=== PATIENT | male | born 1950 | race Caucasian/White ===

== ENCOUNTER 2017-04-25 15:37 | Inpatient (IN) | payer OTHER ==
--- NOTE | 2017-04-25 16:35 | PDOC ---
Attending Attestation - Resident Resident Name: Jonathan Rodriguez - HPI HPI: 04/25/17 18:47 Pt presents to the ED complaining of a three week history of gradually worsening shortness of breath and ANTONY that became acutely worse today. Denies fever or productive cough. Also complaining of increased pain and swelling to both legs. History of COPD without intubations in the past. No relief with his inhaler at home. - Physicial Exam PE: 04/25/17 18:48 Agree with resident exam. + diffuse wheezing with poor air entry bilaterally. Patient is able to speak in complete sentences without respiratory [id number]. + 3 pitting edema to the knee bilaterally. - Medical Decision Making 04/25/17 18:53 Pt presents to the ED complaining of worsening shortness of breath and ANTONY. Differential includes COPD exacerbation, PNA, CHF exacerbation, less likely PE. WIll check labs and CXr, treat with nebs and steroids and reassess. Leg swelling may be secondary to CHF, less likely DVT or cellulitis. GIven his skin breakdown, will treat for cellulitis. Will check bilateral duplexes. Will likely admit to medicine.
--- NOTE | 2017-04-25 16:35 | PDOC ---
History of Present Illness - General Chief Complaint: Respiratory Distress Stated Complaint: SHORTNESS OF BREATH Time Seen by Provider: 04/25/17 16:34 - History of Present Illness Initial Comments: 04/25/17 16:49 66 yo M with h/o HTN, HLD, CHF, CVA ( w/absent residual deficits) NIDDM, MARLINE ( not on CPAP ) COPD, CAD, PAD who presents with SOB. Pt. reports increased SOB, Krueger, and fatigue within past 2 weeks- 3 weeks. Denies home O2 requirement, and reports increased duoneb use from 1-2/day to 4 times per day. On steroid taper from 20 mg, now on 10 mg PO QD. lasix 20 mg PO QD. Endorses severe SOB, and wheezing yesterday evening. Also endorses worsening BL LE edema, redness, and swelling x 1 week. Reports transient episode of sharp left sided chest pain earlier today (now resolved), with absent radiation at rest. Denies cough, pleuritic chest pain, hemoptysis, palpitations, lightheadedness. Denies h/o DVT/ PE, and endorses prolonged periods of immobility within past week. Denies h/o malignany or recent trauma. Recent vascular surgery x [address] Tyson Fu. Tobacco cessation x 2 months following 1-2 ppd 40+ year tobacco use. h/ o CAD, but denies [place], stent placement, CABG. Normal exercise stress test 1 year ago. 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 Denies N/V, F/C, abdominal pain, diarrhea, constipation, urinary complaints , weakness, sensory changes. Past History - Past Medical History Allergies/Adverse Reactions: Allergies Allergy/AdvReac Type Severity Reaction Status Date / Time No Known Allergies Allergy Unverified 04/25/17 15:38 Home Medications: Ambulatory Orders Albuterol Sulfate Inhaler - [Ventolin HFA Inhaler -] 1 - 2 puff PO PRN 04/25/17 Amlodipine Besylate 5 mg PO DAILY 04/25/17 Aspirin [Adult Aspirin Regimen] 81 mg PO DAILY 04/25/17 Atorvastatin Ca [Lipitor] 40 mg PO HS 04/25/17 Carvedilol 12.5 mg PO DAILY 04/25/17 Clopidogrel Bisulfate [Plavix] 75 mg PO DAILY 04/25/17 Ergocalciferol (Vitamin D2) [Vitamin D2] 50,000 unit PO DAILY 04/25/17 Ezetimibe [Zetia] 10 mg PO DAILY 04/25/17 Furosemide [Lasix] 20 mg PO DAILY 04/25/17 Gabapentin 600 mg PO TID 04/25/17 Linagliptin [Tradjenta] 5 mg PO DAILY 04/25/17 Lisinopril 20 mg PO DAILY 04/25/17 Cardiac Disorders: Yes (ENLARGED HEART) COPD: Yes Diabetes: Yes HTN: Yes Hypercholesterolemia: Yes Other medical history: BILATERAL LOWER EXTREMITY VEIN PROBLEM - Suicide/Smoking/Psychosocial Hx Smoking History: Former smoker Have you smoked in the past 12 months: Yes If you are a former smoker, when did you quit?: 03/2017 Information on smoking cessation initiated: No Hx Alcohol Use: No Drug/Substance Use Hx: No Substance Use Type: None Review of Systems - Review of Systems Comments:: 04/25/17 17:03 GENERAL/CONSTITUTIONAL: + Fatigue. No fever or chills. No weakness. HEAD, EYES, EARS, NOSE AND THROAT: No change in vision. No ear pain or discharge. No sore throat. CARDIOVASCULAR: No chest pain or shortness of breath RESPIRATORY: + SOB, and wheezing. No cough,or hemoptysis. GASTROINTESTINAL: No nausea, vomiting, diarrhea or constipation. GENITOURINARY: No dysuria, frequency, or change in urination. MUSCULOSKELETAL: No joint, neck or back pain. SKIN:+ BL LE Swelling and pain. No rash NEUROLOGIC: No headache, vertigo, loss of consciousness, or change in strength/ sensation. ENDOCRINE: No increased thirst. No abnormal weight change HEMATOLOGIC/LYMPHATIC: No anemia, easy bleeding, or history of blood clots. ALLERGIC/IMMUNOLOGIC: No hives or skin allergy. *Physical Exam - Vital Signs Last Vital Signs Temp Pulse Resp BP Pulse Ox 97.4 F L 78 18 148/78 95 04/25/17 15:38 04/25/17 15:38 04/25/17 15:38 04/25/17 15:38 04/25/17 15:38 - Physical Exam Comments: 04/25/17 17:05 GENERAL: Awake, alert, and fully oriented, in no acute distress HEAD: No signs of trauma, normocephalic, atraumatic EYES: PERRLA, EOMI, sclera anicteric, conjunctiva clear ENT: Hearing grossly normal, nares patent, oropharynx clear without exudates. Moist mucosa NECK: Normal ROM, supple, no lymphadenopathy, JVD, or masses LUNGS: Coarse lung sounds at bases. Mild exp rhonci throuhgout. Diminished right sided LL breath sounds. HEART: Regular rate and rhythm, normal S1 and S2, no murmurs, rubs or gallops, UE peripheral pulses normal and equal bilaterally. Difficult to palpate BL LE pulses. EXTREMITIES : BL LE 3 + pitting edema with widespread venous stasis dermatitis and BL lateral areas of non circumscribed, non fluctuant 8 x 8 cm erythema, BTK . No clubbing or cyanosis. Absent lymphadenitis or streaking. SKIN: Warm, Dry, normal turgor, no rashes or lesions noted ED Treatment Course - LABORATORY CBC & Chemistry Diagram: 04/28/17 08:25 04/28/17 08:25 Medical Decision Making - Medical Decision Making 04/25/17 17:09 66 yo M with h/o HTN, HLD, CHF, CVA ( w/absent residual deficits) NIDDM, MARLINE ( not on CPAP ) COPD, CAD, PAD who presents with SOB. Pt. reports increased SOB, Krugeer, and fatigue within past 2 weeks - 3 weeks. Worsening BL LE edema, redness, and swelling x 1 week. Severe SOB, and wheezing yesterday evening. Transient episode of sharp left sided chest pain earlier today (now resolved), with absent radiation at rest. Denies Tobacco cessation x 2 months following 1-2 ppd 40+ year tobacco use. Denies N/V, F/C, cough, pleuritic chest pain, hemoptysis, palpitations, lightheadedness.abdominal pain, diarrhea, constipation , urinary complaints ,weakness, sensory changes. Physical exam noteble for coarse lung sounds at bases. Mild exp rhonci throuhgout. Diminished right sided LL breath sounds. BL LE 3 + pitting edema with widespread venous stasis dermatitis and BL lateral areas of non circumscribed, non fluctuant 8 x 8 cm erythema, BTK . No clubbing or cyanosis. Absent lymphadenitis or streaking. SOB , and leg swelling most likely 2/2 acute on chronic CHF vs. COPD. Will also consider BL LE DVT based on physical exam. R/o PNA, ACS/WI. D/t multiple risk factors, recent surgery, and periods of prolonged immobilization/venous stasis will consider DVT. ED Course: CBC, CMP, BNP, Cardiac Pr EKG, CXR, BL LE DUPLEX VASC UA Keflex 750 mg, Duonebs,Prednisone 60 mg 04/25/17 18:03 CBC: Unremarkable 04/25/17 18:04 Trop: Neg UA: Unremarkable 04/25/17 18:41 Duplex U/S: no evidence of DVT 04/25/17 19:25 Pt. pending admission to [facility] who admits to [facility] who admits to hospitalist after 5 PM. 04/25/17 19:25 BNP: 2578.98 *DC/Admit/Observation/Transfer Diagnosis at time of Disposition: COPD exacerbation - Discharge Dispostion Condition at time of disposition: Fair Admit: Yes - Referrals - Patient Instructions - Post Discharge Activity
[2017-04-25] MEDS ORDERED: predniSONE 20 MG TABLET (UD) PO ONE (16:51)
[2017-04-25] MEDS ORDERED: predniSONE 20 MG TABLET (UD) ONE (17:01)
[2017-04-25] MEDS ORDERED: ALBUTEROL SO4 2.5/IPRATROPIUM 0.5 INH SOL 3 ML VIAL.NEB. NEB ONE (17:01)
[2017-04-25 17:14] LABS: BASO % 1.9 % (0-2.0); EOS % 2.8 % (0-4.5); HEMATOCRIT 44.5 % (35.4-49); HEMOGLOBIN 14.5 GM/dl (11.7-16.9); MCH 29.1 pg (25.7-33.7); MCHC 32.5 g/dl (32.0-35.9); MEAN CELL VOLUME 89.5 fl (80-96); MEAN PLT VOLUME 10.1 fl (7.5-11.1); NEUT % 78.3 % (42.8-82.8); PLATELET COUNT 111 K/MM3 (134-434); RBC 4.98 M/mm3 (4.00-5.60); RDW 15.7 % (11.9-15.9); WHITE BLOOD COUNT 10.3 K/mm3 (4.0-10.8)
[2017-04-25] MEDS: ALBUTEROL SO4 2.5/IPRATROPIUM 0.5 INH SOL 3 ML VIAL.NEB. NEB SCH ×4 (17:15→18:23)
[2017-04-25 17:25] LABS: INR 1.1 (0.82-1.09); PROTHROMBIN TIME (PATIENT) 12.3 SEC (10.2-13.0)
[2017-04-25 17:26] LABS: PH,URINE 5.5 (4.5-8); URINE APPEARANCE Clear; URINE BILIRUBIN Negative (NEGATIVE); URINE BLOOD 1+ (NEGATIVE); URINE COLOR YELLOW; URINE GLUCOSE (UA) Negative (NEGATIVE); URINE KETONE Negative (NEGATIVE); URINE LEUK ESTERASE Negative (NEGATIVE); URINE NITRITE Negative (NEGATIVE); URINE PROTEIN 2+ (NEGATIVE); URINE UROBILINOGEN 0.2 (0.2-1.0)
[2017-04-25 17:29] LABS: ALBUMIN 3.3 g/dl (3.5-5.0); ALK PHOS 123 U/L (32-92); ANION GAP 8 (8-16); BILIRUBIN,TOTAL 0.7 mg/dl (0.2-1.0); BLOOD UREA NITROGEN 20 mg/dl (7-18); CALCIUM 8.6 mg/dl (8.4-10.2); CHLORIDE 101 mmol/L (98-107); CO2 27 mmol/L (22-28); CREATININE 1.3 mg/dl (0.6-1.3); GLUCOSE,RANDOM 146 mg/dl (74-106); POTASSIUM 3.6 mmol/L (3.5-5.1); SGOT/AST 28 U/L (10-42); SGPT/ALT 32 U/L (10-40); SODIUM 136 mmol/L (136-145); TOT PROT 6.4 g/dl (6.4-8.3)
[2017-04-25 17:47] LABS: URINE WBC 0-2 (0-2)
[2017-04-25] MEDS ORDERED: CEPHALEXIN MONOHYDRATE 250 MG CAPSULE (FP) PO ONE (17:55)
[2017-04-25] MEDS ORDERED: CEPHALEXIN MONOHYDRATE 250 MG CAPSULE (FP) ONE (18:23)
[2017-04-25] MEDS ORDERED: FUROSEMIDE 40 MG/4 ML INJECTABLE VIAL IVPUSH ONE (18:41)
[2017-04-25] MEDS ORDERED: FUROSEMIDE 40 MG/4 ML INJECTABLE VIAL ONE (18:49)
--- NOTE | 2017-04-25 20:25 | PDOC ---
*Physical Exam - Vital Signs Last Vital Signs Temp Pulse Resp BP Pulse Ox 97.8 F 62 18 157/78 93 L 04/25/17 20:17 04/25/17 20:17 04/25/17 20:17 04/25/17 20:17 04/25/17 20:17 ED Treatment Course - LABORATORY CBC & Chemistry Diagram: 04/25/17 16:40 04/25/17 16:40 - ADDITIONAL ORDERS Additional order review: Laboratory Results 04/25/17 04/25/17 04/25/17 17:00 16:59 16:59 PT with INR INR Sodium Potassium Chloride Carbon Dioxide Anion Gap BUN Creatinine Creat Clearance w eGFR Random Glucose Calcium Total Bilirubin AST ALT Alkaline Phosphatase Creatine Kinase 33 L Troponin I < 0.03 B-Natriuretic Peptide Total Protein Albumin Urine Color Yellow Urine Appearance Clear Urine pH 5.5 Ur Specific [place] 1.015 Urine Protein 2+ H Urine Glucose (UA) Negative Urine Ketones Negative Urine Blood 1+ H Urine Nitrite Negative Urine Bilirubin Negative Urine Urobilinogen 0.2 Ur Leukocyte Esterase Negative Urine RBC 2-5 Urine WBC 0-2 04/25/17 04/25/17 04/25/17 16:59 16:40 16:40 PT with INR 12.3 INR 1.10 Sodium 136 Potassium 3.6 Chloride 101 Carbon Dioxide 27 Anion Gap 8 BUN 20 H Creatinine 1.3 Creat Clearance w eGFR 55.06 Random Glucose 146 H Calcium 8.6 Total Bilirubin 0.7 AST 28 ALT 32 Alkaline Phosphatase 123 H Creatine Kinase Troponin I B-Natriuretic Peptide 2578.98 H Total Protein 6.4 Albumin 3.3 L Urine Color Urine Appearance Urine pH Ur Specific [place] Urine Protein Urine Glucose (UA) Urine Ketones Urine Blood Urine Nitrite Urine Bilirubin Urine Urobilinogen Ur Leukocyte Esterase Urine RBC Urine WBC 04/25/17 16:40 RBC 4.98 MCV 89.5 MCHC 32.5 RDW 15.7 MPV 10.1 Neutrophils % 78.3 Lymphocytes % 12.0 Monocytes % 5.0 Eosinophils % 2.8 Basophils % 1.9 - Medications Given in the ED: ED Medications Discontinued Medications Generic Name Dose Route Start Last Admin Trade Name Freq PRN Reason Stop Dose Admin Albuterol/Ipratropium 1 amp 04/25/17 17:00 04/25/17 18:23 Duoneb - NEB 04/25/17 17:46 1 amp Q15M ZAKIYA Administration Cephalexin HCl 750 mg 04/25/17 17:55 04/25/17 18:26 Keflex - PO 04/25/17 17:56 750 mg ONCE ONE Administration Furosemide 40 mg 04/25/17 18:41 04/25/17 18:54 Lasix Injection - IVPUSH 04/25/17 18:42 40 mg ONCE ONE Administration Prednisone 60 mg 04/25/17 16:51 04/25/17 17:15 Deltasone - PO 04/25/17 16:52 60 mg ONCE ONE Administration Progress Note - Progress Note Progress Note: This patient was seen and evaluated treated and disposition made prior to my coming on duty at 7 PM however patient had not had admitting orders put in yet so I reevaluated the patient and she continued to have diffuse wheezing throughout all lung luna. I discussed admission with the hospitalist who agreed to admit the patient to an observation bed for acute exacerbation of COPD. However patient is recently postop so a PE is part of the differential diagnosis however wheezing is not a manifestation of a PE. Patient's oxygenation is 95-97% patient has not tachycardic or tachypnea. I do not feel that a CT angiogram of the chest is warranted at this time however if patient does not improve with COPD treatment that a CT Angiogram of the chest should definitely be considered post admission. Patient was accepted for admission by the hospitalist service. . Signout given to the admitting hospitalist, who accepts the patient. Discussed plan with the patient family at bedside, Patient and family aware of the plan and agree. Patient is clinically unchanged and stable. *DC/Admit/Observation/Transfer Diagnosis at time of Disposition: COPD exacerbation - Discharge Dispostion Condition at time of disposition: Fair Admit: Yes Decision to Admit order Date/Time: Decision to Admit Order Category Date Time Status Decision to Admit to Hospital Routine Admission 04/25/17 20:03 Active - Referrals - Patient Instructions - Post Discharge Activity
--- NOTE | 2017-04-25 21:22 | HP ---
Admitting History and Physical - Primary Care Physician PCP: Doctor not on Staff ([facility]) - Admission Chief Complaint: SOB, Leg swelling History of Present Illness: This is a 66 y/o man who presents to the ED with increased SOB and fatigue x 2 weeks. Patient reports ANTONY while taking a few steps at home. Patient reports smoking cessation last month. Patient reports increased tightness and swelling to both legs. Patient denies fever, chills, cough, dizziness, CP, palpitations, AP, N/V/D, constipation, dysuria. History Source: Patient Limitations to Obtaining History: No Limitations - Past Medical History [employer]OCK[employer]: Yes: CVA (neg deficits) Cardiovascular: Yes: CHF, HTN, Hyperlipdemia, Other (PAD) Pulmonary: Yes: COPD, Sleep Apnea Endocrine: Yes: Diabetes Mellitus - Past Surgical History Additional Past Surgical History: cardiac cath - Smoking History Smoking history: Former smoker Have you smoked in the past 12 months: Yes Aproximately how many cigarettes per day: 40 (2PPD x 30 yrs) If you are a former smoker, when did you quit?: 03/2017 - Alcohol/Substance Use Hx Alcohol Use: No History of Substance Use: reports: None - Social History Usual Living Arrangement: Yes: With Spouse ADL: Family Assistance History of Recent Travel: No Home Medications - Allergies Allergies/Adverse Reactions: Allergies Allergy/AdvReac Type Severity Reaction Status Date / Time No Known Allergies Allergy Unverified 04/25/17 15:38 - Home Medications Home Medications: Ambulatory Orders Albuterol Sulfate Inhaler - [Ventolin HFA Inhaler -] 1 - 2 puff PO PRN 04/25/17 Amlodipine Besylate 5 mg PO DAILY 04/25/17 Aspirin [Adult Aspirin Regimen] 81 mg PO DAILY 04/25/17 Atorvastatin Ca [Lipitor] 40 mg PO HS 04/25/17 Carvedilol 12.5 mg PO DAILY 04/25/17 Clopidogrel Bisulfate [Plavix] 75 mg PO DAILY 04/25/17 Ergocalciferol (Vitamin D2) [Vitamin D2] 50,000 unit PO DAILY 04/25/17 Ezetimibe [Zetia] 10 mg PO DAILY 04/25/17 Furosemide [Lasix] 20 mg PO DAILY 04/25/17 Gabapentin 600 mg PO TID 04/25/17 Linagliptin [Tradjenta] 5 mg PO DAILY 04/25/17 Lisinopril 20 mg PO DAILY 04/25/17 Family Disease History - Family Disease History Family History: Unable to Obtain Review of Systems - Review of Systems Constitutional: reports: Malaise, Weakness Eyes: reports: No Symptoms HENT: reports: No Symptoms Neck: reports: No Symptoms Cardiovascular: reports: Edema, Shortness of Breath Respiratory: reports: SOB, SOB on Exertion Gastrointestinal: reports: No Symptoms Genitourinary: reports: No Symptoms Breasts: reports: No Symptoms Reported Musculoskeletal: reports: Joint Swelling Integumentary: reports: Change in Color, Erythema Neurological: reports: No Symptoms Endocrine: reports: No Symptoms Hematology/Lymphatic: reports: No Symptoms Psychiatric: reports: No Symptoms Physical Examination Vital Signs: Vital Signs Temperature 97.8 F 04/25/17 20:17 Pulse Rate 62 04/25/17 20:17 Respiratory Rate 18 04/25/17 20:17 Blood Pressure 157/78 04/25/17 20:17 O2 Sat by Pulse Oximetry (%) 93 L 04/25/17 20:17 Constitutional: Yes: Mild Distress, Obese Eyes: Yes: WNL, Conjunctiva Clear, EOM Intact, PERRL HENT: Yes: WNL, Atraumatic, Normocephalic Neck: Yes: WNL, Supple, Trachea Midline Cardiovascular: Yes: WNL, Regular Rate and Rhythm, S1, S2 Respiratory: Yes: Diminished (bases), On Nasal O2, Rales, Rhonchi, SOB, SOB on Exertion Gastrointestinal: Yes: WNL, Normal Bowel Sounds, Soft, Abdomen, Obese ...Rectal Exam: Yes: Deferred Renal/: Yes: WNL Breast(s): Yes: WNL Musculoskeletal: Yes: WNL Extremities: Yes: Erythema Edema: Yes Edema: LLE: 3+, RLE: 3+ Peripheral Pulses WNL: Yes Peripheral Pulses: Left Doralis Pedis: 1+, Right Dorsalis Pedis: 1+ Integumentary: Yes: Erythema, Venous Stasis Changes Neurological: Yes: WNL, Alert, Oriented, Cran Nerves II-XII Intact ...Motor Strength: WNL Psychiatric: Yes: WNL, Alert, Oriented Labs: CBC, BMP 04/25/17 16:40 04/25/17 16:40 Laboratory Results - last 24 hr 04/25/17 04/25/17 04/25/17 16:40 16:40 16:40 WBC 10.3 RBC 4.98 Hgb 14.5 Hct 44.5 MCV 89.5 MCH 29.1 MCHC 32.5 RDW 15.7 Plt Count 111 L MPV 10.1 Neutrophils % 78.3 Lymphocytes % 12.0 Monocytes % 5.0 Eosinophils % 2.8 Basophils % 1.9 PT with INR 12.3 INR 1.10 Sodium 136 Potassium 3.6 Chloride 101 Carbon Dioxide 27 Anion Gap 8 BUN 20 H Creatinine 1.3 Creat Clearance w eGFR 55.06 Random Glucose 146 H Calcium 8.6 Total Bilirubin 0.7 AST 28 ALT 32 Alkaline Phosphatase 123 H Creatine Kinase Troponin I B-Natriuretic Peptide Total Protein 6.4 Albumin 3.3 L Urine Color Urine Appearance Urine pH Ur Specific [place] Urine Protein Urine Glucose (UA) Urine Ketones Urine Blood Urine Nitrite Urine Bilirubin Urine Urobilinogen Ur Leukocyte Esterase Urine RBC Urine WBC 04/25/17 04/25/17 04/25/17 16:59 16:59 16:59 WBC RBC Hgb Hct MCV MCH MCHC RDW Plt Count MPV Neutrophils % Lymphocytes % Monocytes % Eosinophils % Basophils % PT with INR INR Sodium Potassium Chloride Carbon Dioxide Anion Gap BUN Creatinine Creat Clearance w eGFR Random Glucose Calcium Total Bilirubin AST ALT Alkaline Phosphatase Creatine Kinase 33 L Troponin I < 0.03 B-Natriuretic Peptide 2578.98 H Total Protein Albumin Urine Color Urine Appearance Urine pH Ur Specific [place] Urine Protein Urine Glucose (UA) Urine Ketones Urine Blood Urine Nitrite Urine Bilirubin Urine Urobilinogen Ur Leukocyte Esterase Urine RBC Urine WBC 04/25/17 04/26/17 17:00 00:01 WBC RBC Hgb Hct MCV MCH MCHC RDW Plt Count MPV Neutrophils % Lymphocytes % Monocytes % Eosinophils % Basophils % PT with INR INR Sodium Potassium Chloride Carbon Dioxide Anion Gap BUN Creatinine Creat Clearance w eGFR Random Glucose Calcium Total Bilirubin AST ALT Alkaline Phosphatase Creatine Kinase Troponin I 0.03 B-Natriuretic Peptide Total Protein Albumin Urine Color Yellow Urine Appearance Clear Urine pH 5.5 Ur Specific [place] 1.015 Urine Protein 2+ H Urine Glucose (UA) Negative Urine Ketones Negative Urine Blood 1+ H Urine Nitrite Negative Urine Bilirubin Negative Urine Urobilinogen 0.2 Ur Leukocyte Esterase Negative Urine RBC 2-5 Urine WBC 0-2 Intake & Output 04/23/17 04/24/17 04/25/17 04/26/17 23:59 23:59 23:59 23:59 Intake Total 100 Output Total 200 Balance 100 -200 Weight 129.756 kg Current Medications Generic Name Dose Route Start Last Admin Trade Name Shaniqua PRN Reason Stop Dose Admin Amlodipine Besylate 5 mg 04/26/17 10:00 Norvasc - PO DAILY [facility] Aspirin 81 mg 04/26/17 10:00 Ecotrin - PO DAILY ZAKIYA Atorvastatin Calcium 40 mg 04/25/17 22:00 04/25/17 23:35 Lipitor - PO 40 mg HS ZAKIYA Administration Carvedilol 12.5 mg 04/26/17 10:00 Coreg - PO DAILY ZAKIYA Clopidogrel Bisulfate 75 mg 04/26/17 10:00 Plavix - PO DAILY ZAKIYA Ezetimibe 10 mg 04/26/17 10:00 Zetia - PO DAILY ZAKIYA Furosemide 40 mg 04/26/17 10:00 Lasix Injection - IVPUSH DAILY [facility] Gabapentin 600 mg 04/25/17 22:00 04/25/17 23:35 Neurontin - PO 600 mg TID ZAKIYA Administration Lisinopril 20 mg 04/26/17 10:00 Prinivil PO DAILY ZAKIYA Imaging - Results Chest X-ray: Image Reviewed Ultrasound: Report Reviewed, Image Reviewed EKG: Report Reviewed Problem List - Problems (1) CHF exacerbation Code(s): I50.9 - HEART FAILURE, UNSPECIFIED (2) COPD exacerbation Code(s): J44.1 - CHRONIC OBSTRUCTIVE PULMONARY DISEASE W (ACUTE) EXACERBATION (3) CAD (coronary artery disease) Code(s): I25.10 - ATHSCL HEART DISEASE OF [place] CORONARY ARTERY W/O ANG PCTRS (4) HTN (hypertension) Code(s): I10 - ESSENTIAL (PRIMARY) HYPERTENSION (5) HLD (hyperlipidemia) Code(s): E78.5 - HYPERLIPIDEMIA, UNSPECIFIED (6) Diabetes mellitus Code(s): E11.9 - TYPE 2 DIABETES MELLITUS WITHOUT COMPLICATIONS (7) PAD (peripheral artery disease) Code(s): I73.9 - PERIPHERAL VASCULAR DISEASE, UNSPECIFIED (8) MARLINE (obstructive sleep apnea) Code(s): G47.33 - OBSTRUCTIVE SLEEP APNEA (ADULT) (PEDIATRIC) (9) CVA (cerebral vascular accident) Code(s): I63.9 - CEREBRAL INFARCTION, UNSPECIFIED (10) DVT prophylaxis Code(s): AFS7410 - Assessment/Plan This is a 66 y/o man with a PMHx of: HTN, HLD, NIDDM, CHF, PAD, CVA (no deficits ), COPD (no O2), MARLINE. Placed on Tele Observation for CHF Exacerbation. Plan: 1. CHF Exacerbation - Cardiac monitoring - Chest Xray- reviewed - BNP 2578 - Lasix given in ED will continue - Venous Dopper- neg DVTs - Serial Enzymes neg x1, will continue to trend - Appreciate Cardiology consult - Echo - Strict INOs - O2 - Repeat CBC, BMP in am 2. COPD - Duonebs - Solumederol w/taper - Appreciate Pulm consult - O2 3. Hypertension - Monitor BP - Continue Lisinopril, Zetia, Norvasc - Monitor renal function 4. Hyperlipidemia - Continue Lipitor - Monitor LFTs 5. PAD - FU with vascular outpatient 6. NIDDM - BGMs - ISS - Continue Tradjenta - HgbA1C in am 7. CVA - no deficits - Continue to monitor and treat with interventions accordingly - Fall Precautions 8. MARLINE - no CPAP home use secondary to financial strain - Case Management consult 9. FEN - Fluid Restrictions 1L - Replete lytes prn - Low Na, Diabetic Diet 10. DVT ppx - OOB - Heparin SQ closely monitor platelets Code Status: Full Code Dispo: Tele Observation Visit type - Emergency Visit Emergency Visit: Yes ED Registration Date: 04/25/17 Care time: The patient presented to the Emergency Department on the above date and was hospitalized for further evaluation of their emergent condition. - New Patient This patient is new to me today: Yes Date on this admission: 04/25/17 - Critical Care Critical Care patient: No Hospitalist Screening - Colonoscopy Questionnaire Colonoscopy Questionnaire: Colonoscopy Questionnaire - Patient: 50 - 75 years old and never had a screening colonoscopy: No History of colon or rectal polyps, or CA: No History of IBD, Crohn's disease or UC: No History of abdominal radiation therapy as a child: No - Relative: 1 with colon or rectal CA, or polyps at age 60 or younger: No Colon or rectal CA diagnosed at age 45 or younger: No Multiple relatives with colon or rectal CA: No - Outcome: Screening Result: Negative Screen
[2017-04-25] MEDS: GABAPENTIN 300 MG CAPSULE (FP) PO SCH (23:35)
[2017-04-25] MEDS: ATORVASTATIN CA 40 MG TABLET (FP) PO SCH (23:35)
[2017-04-26 00:13] VITALS: BMI 49.1
[2017-04-26] MEDS ORDERED: ALBUTEROL SO4 2.5/IPRATROPIUM 0.5 INH SOL 3 ML VIAL.NEB. NEB PRN (06:08)
[2017-04-26] MEDS: GABAPENTIN 300 MG CAPSULE (FP) PO SCH ×3 (06:27→21:29)
[2017-04-26] MEDS: FUROSEMIDE 40 MG/4 ML INJECTABLE VIAL IVPUSH SCH ×2 (06:27→13:24)
[2017-04-26 07:42] LABS: HEMATOCRIT 45.2 % (35.4-49); HEMOGLOBIN 15.4 GM/dl (11.7-16.9); MCH 30.5 pg (25.7-33.7); MCHC 34.1 g/dl (32.0-35.9); MEAN CELL VOLUME 89.6 fl (80-96); MEAN PLT VOLUME 9.2 fl (7.5-11.1); PLATELET COUNT 105 K/MM3 (134-434); RBC 5.05 M/mm3 (4.00-5.60); RDW 15.7 % (11.9-15.9); WHITE BLOOD COUNT 9.4 K/mm3 (4.0-10.8)
[2017-04-26 07:55] LABS: ADD RBC MORPHOLOGY YES
[2017-04-26 08:08] LABS: ANION GAP 5 (8-16); BLOOD UREA NITROGEN 27 mg/dl (7-18); CALCIUM 8.4 mg/dl (8.4-10.2); CHLORIDE 100 mmol/L (98-107); CO2 29 mmol/L (22-28); CREATININE 1.6 mg/dl (0.6-1.3); PHOSPHOROUS 3.2 mg/dl (2.5-4.6); SODIUM 134 mmol/L (136-145)
[2017-04-26 08:26] LABS: GLUCOSE,RANDOM 307 mg/dl (74-106)
[2017-04-26] MEDS ORDERED: methylPREDNISolone NA SUCC 40 MG/1 ML VIAL IVPUSH SCH (09:00)
[2017-04-26] MEDS ORDERED: INSULIN (NOVOLOG) ASPART 100 UNITS/ML 10ML VIAL ONE ×2 (09:19→21:37)
[2017-04-26] MEDS: EZETIMIBE 10 MG TABLET (FP) PO SCH (09:59)
[2017-04-26] MEDS: CARVEDILOL 12.5 MG TABLET (FP) PO SCH (09:59)
[2017-04-26] MEDS: amLODIPine BESYLATE 5 MG TABLET (FP) PO SCH (09:59)
[2017-04-26] MEDS: LISINOPRIL 20 MG TABLET (FP) PO SCH (10:00)
[2017-04-26] MEDS: ASPIRIN COATED 81 MG TABLET.EC PO SCH (10:00)
[2017-04-26] MEDS ORDERED: FUROSEMIDE 40 MG/4 ML INJECTABLE VIAL IVPUSH SCH (10:00)
[2017-04-26] MEDS: CLOPIDOGREL BISULFATE 75 MG TABLET (FP) PO SCH (10:00)
[2017-04-26] MEDS: INSULIN SLIDING SCALE (NOVOLOG) 1 VIAL SQ SCH ×3 (10:00→21:38)
[2017-04-26 11:30] LABS: PLATELET ESTIMATE ADEQUATE
--- NOTE | 2017-04-26 11:46 | PN ---
Physical Exam: SUBJECTIVE: Patient seen and examined oob to chair. Patient states he is about 25 pounds above his dry weight. OBJECTIVE: Vital Signs Period Temp Pulse Resp BP Sys/Ni Pulse Ox Last 24 Hr 97.4 F-98.6 F 62-78 17-20 118-157/61-78 93-98 GENERAL: The patient is awake, alert, and fully oriented, in no acute distress. LUNGS: Distant breath sounds due to body habitus; no wheezing or crackles appreciated HEART: Regular rate and rhythm, S1, S2 ABDOMEN: Soft, nontender, obese EXTREMITIES: 4+ tense edema, cobblestoning venous stasis changes NEUROLOGICAL: Cranial nerves II through XII grossly intact. Normal speech, gait not observed. Laboratory Results - last 24 hr 04/25/1718 04/25/17 16:40 16:40 16:40 WBC 10.3 RBC 4.98 Hgb 14.5 Hct 44.5 MCV 89.5 MCH 29.1 MCHC 32.5 RDW 15.7 Plt Count 111 L MPV 10.1 Neutrophils % 78.3 Neutrophils % (Manual) Band Neutrophils % Lymphocytes % 12.0 Lymphocytes % (Manual) Monocytes % 5.0 Monocytes % (Manual) Eosinophils % 2.8 Basophils % 1.9 Platelet Estimate PT with INR 12.3 INR 1.10 Sodium 136 Potassium 3.6 Chloride 101 Carbon Dioxide 27 Anion Gap 8 BUN 20 H Creatinine 1.3 Creat Clearance w eGFR 55.06 Random Glucose 146 H Hemoglobin A1c % Calcium 8.6 Phosphorus Magnesium Total Bilirubin 0.7 AST 28 ALT 32 Alkaline Phosphatase 123 H Creatine Kinase Troponin I B-Natriuretic Peptide Total Protein 6.4 Albumin 3.3 L Urine Color Urine Appearance Urine pH Ur Specific [place] Urine Protein Urine Glucose (UA) Urine Ketones Urine Blood Urine Nitrite Urine Bilirubin Urine Urobilinogen Ur Leukocyte Esterase Urine RBC Urine WBC 04/25/17 04/25/17 04/25/17 16:59 16:59 16:59 WBC RBC Hgb Hct MCV MCH MCHC RDW Plt Count MPV Neutrophils % Neutrophils % (Manual) Band Neutrophils % Lymphocytes % Lymphocytes % (Manual) Monocytes % Monocytes % (Manual) Eosinophils % Basophils % Platelet Estimate PT with INR INR Sodium Potassium Chloride Carbon Dioxide Anion Gap BUN Creatinine Creat Clearance w eGFR Random Glucose Hemoglobin A1c % Calcium Phosphorus Magnesium Total Bilirubin AST ALT Alkaline Phosphatase Creatine Kinase 33 L Troponin I < 0.03 B-Natriuretic Peptide 2578.98 H Total Protein Albumin Urine Color Urine Appearance Urine pH Ur Specific [place] Urine Protein Urine Glucose (UA) Urine Ketones Urine Blood Urine Nitrite Urine Bilirubin Urine Urobilinogen Ur Leukocyte Esterase Urine RBC Urine WBC 04/25/17 04/26/17 04/26/17 17:00 00:01 07:15 WBC 9.4 RBC 5.05 Hgb 15.4 Hct 45.2 MCV 89.6 MCH 30.5 MCHC 34.1 RDW 15.7 Plt Count 105 L MPV 9.2 Neutrophils % No Result Required. Neutrophils % (Manual) 89.0 H Band Neutrophils % 4.0 Lymphocytes % No Result Required. Lymphocytes % (Manual) 3.0 L Monocytes % Monocytes % (Manual) 4 Eosinophils % Basophils % Platelet Estimate Adequate PT with INR INR Sodium Potassium Chloride Carbon Dioxide Anion Gap BUN Creatinine Creat Clearance w eGFR Random Glucose Hemoglobin A1c % Calcium Phosphorus Magnesium Total Bilirubin AST ALT Alkaline Phosphatase Creatine Kinase Troponin I 0.03 B-Natriuretic Peptide Total Protein Albumin Urine Color Yellow Urine Appearance Clear Urine pH 5.5 Ur Specific [place] 1.015 Urine Protein 2+ H Urine Glucose (UA) Negative Urine Ketones Negative Urine Blood 1+ H Urine Nitrite Negative Urine Bilirubin Negative Urine Urobilinogen 0.2 Ur Leukocyte Esterase Negative Urine RBC 2-5 Urine WBC 0-2 04/26/17 04/26/17 04/26/17 07:15 07:15 07:15 WBC RBC Hgb Hct MCV MCH MCHC RDW Plt Count MPV Neutrophils % Neutrophils % (Manual) Band Neutrophils % Lymphocytes % Lymphocytes % (Manual) Monocytes % Monocytes % (Manual) Eosinophils % Basophils % Platelet Estimate PT with INR INR Sodium 134 L Potassium 4.0 Chloride 100 Carbon Dioxide 29 H Anion Gap 5 L BUN 27 H D Creatinine 1.6 H D Creat Clearance w eGFR Random Glucose 307 H* D Hemoglobin A1c % 7.8 H Calcium 8.4 Phosphorus 3.2 Magnesium 2.0 Total Bilirubin AST ALT Alkaline Phosphatase Creatine Kinase Troponin I < 0.03 B-Natriuretic Peptide Total Protein Albumin Urine Color Urine Appearance Urine pH Ur Specific [place] Urine Protein Urine Glucose (UA) Urine Ketones Urine Blood Urine Nitrite Urine Bilirubin Urine Urobilinogen Ur Leukocyte Esterase Urine RBC Urine WBC Active Medications Generic Name Dose Route Start Last Admin Trade Name Freq PRN Reason Stop Dose Admin Albuterol/Ipratropium 1 amp 04/26/17 06:08 Duoneb - NEB Q6H PRN SHORTNESS OF BREATH Amlodipine Besylate 5 mg 04/26/17 10:00 04/26/17 09:59 Norvasc - PO 5 mg DAILY ZAKIYA Administration Aspirin 81 mg 04/26/17 10:00 04/26/17 10:00 Ecotrin - PO 81 mg DAILY ZAKIYA Administration Atorvastatin Calcium 40 mg 04/25/17 22:00 04/25/17 23:35 Lipitor - PO 40 mg HS ZAKIYA Administration Carvedilol 12.5 mg 04/26/17 10:00 04/26/17 09:59 Coreg - PO 12.5 mg DAILY ZAKIYA Administration Clopidogrel Bisulfate 75 mg 04/26/17 10:00 04/26/17 10:00 Plavix - PO 75 mg DAILY ZAKIYA Administration Ezetimibe 10 mg 04/26/17 10:00 04/26/17 09:59 Zetia - PO 10 mg DAILY ZAKIYA Administration Furosemide 40 mg 04/26/17 06:15 04/26/17 06:27 Lasix Injection - IVPUSH 40 mg BID@0600,1400 ZAKIYA Administration Gabapentin 600 mg 04/25/17 22:00 04/26/17 06:27 Neurontin - PO 600 mg TID ZAKIYA Administration Insulin Aspart 1 vial 04/26/17 11:00 04/26/17 10:00 Novolog Vial Sliding Scale - SQ 10 units ACHS ZAKIYA Administration Protocol Lisinopril 20 mg 04/26/17 10:00 04/26/17 10:00 Prinivil PO 20 mg DAILY ZAKIYA Administration Methylprednisolone Sodium Succinate 40 mg 04/26/17 09:00 04/26/17 09:59 Solu-Medrol - IVPUSH 40 mg Q6H-IV ZAKIYA Administration ASSESSMENT/PLAN 66 year-old male with a PMH significant for HTN, HLD, CHF, chronic venous insufficiency, COPD, MARLINE, NIDDM. Admitted for CHF exacerbation. CHF exacerbation --no echo available, cannot document whether this is systolic v. diastolic --significant lower extremity edema, congestive changes on CXR --continue Lasix IV 40mg BID --slight bump in Cr; US renal ordered, urine studies to calculate FeUrea --strict I&Os, daily weights NICM --patient reports recent cath with non-obstructive disease --continue ASA, Plavix Hypertension --BP stable --continue amlodipine, carvedilol, lisinopril Hyperlipidemia --continue Lipitor, Zetia Chronic venous insufficiency --vein stripping a month ago --compression wrap, keep legs elevated when not walking --lac hydrin BID COPD --per pulmonary continue solumedrol NIDDM --Novolog sliding scale coverage FEN Fluids: PO intake adequate; consider fluid restriction Electrolytes: replete as indicated Nutrition: low sodium, diabetic DVT prophylaxis: subq heparin, oob, ambulation Physical therapy Dispo: continues to require inpatient care. Full code. Visit type - Emergency Visit Emergency Visit: Yes ED Registration Date: 04/26/17 Care time: The patient presented to the Emergency Department on the above date and was hospitalized for further evaluation of their emergent condition. - New Patient This patient is new to me today: Yes Date on this admission: 04/28/17 - Critical Care Critical Care patient: No
--- NOTE | 2017-04-26 13:52 | CON.CARD ---
Cardiology Consult (text) - Consultation Consultation Note: cc: sob hpi: 66 m hx syst chf (nicm), le edema/venous insuff, dm, copd, htn, hld, cva, priti here with sob. Has hx chf for past 4 yrs and has been stable until past few weeks when noticed worse le edema and arora. Has been avoiding salt. Takes his lasix 20 qd. No cp, palps, dizzy, loc, pnd, orthopnea. After iv lasix here starting to feel better. Sees outside cardio. pmh: per hpi psh: varicose vein stripping social: ex tob fam: no premature cad ros: per hpi; no nvd, cough, nasal congestion, wt loss, gib, hematuria, dysuria , muscle pain meds: Home Medications Medication Instructions Recorded Albuterol Sulfate Inhaler - 1 - 2 puff PO PRN 04/25/17 [Ventolin HFA Inhaler -] Amlodipine Besylate 5 mg PO DAILY 04/25/17 Aspirin [Adult Aspirin Regimen] 81 mg PO DAILY 04/25/17 Atorvastatin Ca [Lipitor] 40 mg PO HS 04/25/17 Carvedilol 12.5 mg PO DAILY 04/25/17 Clopidogrel Bisulfate [Plavix] 75 mg PO DAILY 04/25/17 Ergocalciferol (Vitamin D2) 50,000 unit PO DAILY 04/25/17 [Vitamin D2] Ezetimibe [Zetia] 10 mg PO DAILY 04/25/17 Furosemide [Lasix] 20 mg PO DAILY 04/25/17 Gabapentin 600 mg PO TID 04/25/17 Linagliptin [Tradjenta] 5 mg PO DAILY 04/25/17 Lisinopril 20 mg PO DAILY 04/25/17 pe: Vital Signs Period Temp Pulse Resp BP Sys/Ni Pulse Ox Last 24 Hr 97.4 F-98.6 F 62-78 17-20 118-157/61-78 93-98 nad no jvd rrr s1s2 no mrg cta bl nl eff aaox3 2+ le edema pitting and nonpitting with chronic stasis changes abd nt nd pos bs no jaundice diaphoresis pos dp pt no carotid bruits Laboratory Last Values WBC 9.4 K/mm3 (4.0-10.8) 04/26/17 07:15 RBC 5.05 M/mm3 (4.00-5.60) 04/26/17 07:15 Hgb 15.4 GM/dl (11.7-16.9) 04/26/17 07:15 Hct 45.2 % (35.4-49) 04/26/17 07:15 MCV 89.6 fl (80-96) 04/26/17 07:15 MCH 30.5 pg (25.7-33.7) 04/26/17 07:15 MCHC 34.1 g/dl (32.0-35.9) 04/26/17 07:15 RDW 15.7 % (11.9-15.9) 04/26/17 07:15 Plt Count 105 K/MM3 (134-434) L 04/26/17 07:15 MPV 9.2 fl (7.5-11.1) 04/26/17 07:15 Neutrophils % No Result Required. 04/26/17 07:15 Neutrophils % (Manual) 89.0 % (42.8-82.8) H 04/26/17 07:15 Band Neutrophils % 4.0 % (0-10) 04/26/17 07:15 Lymphocytes % No Result Required. 04/26/17 07:15 Lymphocytes % (Manual) 3.0 % (8-40) L 04/26/17 07:15 Monocytes % 5.0 % (3.8-10.2) 04/25/17 16:40 Monocytes % (Manual) 4 % (3.8-10.2) 04/26/17 07:15 Eosinophils % 2.8 % (0-4.5) 04/25/17 16:40 Basophils % 1.9 % (0-2.0) 04/25/17 16:40 Platelet Estimate Adequate 04/26/17 07:15 PT with INR 12.3 SEC (10.2-13.0) 04/25/17 16:40 INR 1.10 (0.82-1.09) 04/25/17 16:40 Sodium 134 mmol/L (136-145) L 04/26/17 07:15 Potassium 4.0 mmol/L (3.5-5.1) 04/26/17 07:15 Chloride 100 mmol/L (98-107) 04/26/17 07:15 Carbon Dioxide 29 mmol/L (22-28) H 04/26/17 07:15 Anion Gap 5 (8-16) L 04/26/17 07:15 BUN 27 mg/dl (7-18) H D 04/26/17 07:15 Creatinine 1.6 mg/dl (0.6-1.3) H D 04/26/17 07:15 Creat Clearance w eGFR 55.06 (>60) 04/25/17 16:40 POC Glucometer 138 UNITS (80-120) 04/26/17 11:49 Random Glucose 307 mg/dl (74-106) H* D 04/26/17 07:15 Hemoglobin A1c % 7.8 % (4.8-6.0) H 04/26/17 07:15 Calcium 8.4 mg/dl (8.4-10.2) 04/26/17 07:15 Phosphorus 3.2 mg/dl (2.5-4.6) 04/26/17 07:15 Magnesium 2.0 mg/dL (1.8-2.4) 04/26/17 07:15 Total Bilirubin 0.7 mg/dl (0.2-1.0) 04/25/17 16:40 AST 28 U/L (10-42) 04/25/17 16:40 ALT 32 U/L (10-40) 04/25/17 16:40 Alkaline Phosphatase 123 U/L (32-92) H 04/25/17 16:40 Creatine Kinase 33 IU/L (39-308) L 04/25/17 16:59 Troponin I < 0.03 ng/ml (0.00-0.06) 04/26/17 07:15 B-Natriuretic Peptide 2578.98 pg/ml (5-125) H 04/25/17 16:59 Total Protein 6.4 g/dl (6.4-8.3) 04/25/17 16:40 Albumin 3.3 g/dl (3.5-5.0) L 04/25/17 16:40 Urine Color Yellow 04/25/17 17:00 Urine Appearance Clear 04/25/17 17:00 Urine pH 5.5 (4.5-8) 04/25/17 17:00 Ur Specific [place] 1.015 (1.005-1.025) 04/25/17 17:00 Urine Protein 2+ (NEGATIVE) H 04/25/17 17:00 Urine Glucose (UA) Negative (NEGATIVE) 04/25/17 17:00 Urine Ketones Negative (NEGATIVE) 04/25/17 17:00 Urine Blood 1+ (NEGATIVE) H 04/25/17 17:00 Urine Nitrite Negative (NEGATIVE) 04/25/17 17:00 Urine Bilirubin Negative (NEGATIVE) 04/25/17 17:00 Urine Urobilinogen 0.2 (0.2-1.0) 04/25/17 17:00 Ur Leukocyte Esterase Negative (NEGATIVE) 04/25/17 17:00 Urine RBC 2-5 /hpf (0-3) 04/25/17 17:00 Urine WBC 0-2 (0-2) 04/25/17 17:00 tele: sr ecg: sr, pvcs, nl intervals, no ischemic changes cxr: chf a/p: 66 m hx syst chf (nicm), le edema/venous insuff, dm, copd, htn, hld, cva, priti here with sob. sob, acute syst chf: -pt reports reduced lvef since past 4 years. he reports non obs cad on cath at that time so likely has NICM -currently with chf exacerbation -no signs acs -cont lasix iv 40 bid -daily wts, bmp -cont richard, coreg -check echo le edema/venous insuff: -pt reports venous stripping done about a mos ago -cont diuresis as above htn: -cont current meds hld: -cont statin, zetia
--- NOTE | 2017-04-26 16:20 | CON.PULM ---
Consult Consult Specialty:: PULM/CCM Referred by:: AUDREY Reason for Consultation:: SOB - History of Present Illness Chief Complaint: SOB History of Present Illness: 66 M, HTN, HLD, CHF, CVA (no residual deficits) NIDDM, previously diagnosed MARLINE by HST several years ago/not on CPAP therapy (he still has the device and used it one night recently due to SOB) COPD (quit smoking about 2 months ago/ previouslt 1 to 2 PPD), CAD, and PAD. Admitted via the ER due to progressive SOB for over 2 weeks. He has been using his Ventolin inhaler quite frequently with only transient improvement. No travel history or sick contacts. He was prescribed a Prednisone taper but no ABX. CXR: Bilateral congestive changes consistent with CHF - History Source History Provided By: Patient Limitations to Obtaining History: No Limitations - Past Medical History PROGRAM FACILITATOR: Yes: CVA (neg deficits) Cardio/Vascular: Yes: CHF, HTN, Hyperlipdemia, Other (PAD) Pulmonary: Yes: COPD, Sleep Apnea Endocrine: Yes: Diabetes Mellitus - Alcohol/Substance Use Hx Alcohol Use: No History of Substance Use: reports: None - Smoking History Smoking history: Former smoker Have you smoked in the past 12 months: Yes Aproximately how many cigarettes per day: 40 (2PPD x 30 yrs) If you are a former smoker, when did you quit?: 03/2017 - Social History ADL: Family Assistance History of Recent Travel: No Home Medications - Allergies Allergies/Adverse Reactions: Allergies Allergy/AdvReac Type Severity Reaction Status Date / Time No Known Allergies Allergy Unverified 04/25/17 15:38 - Home Medications Home Medications: Ambulatory Orders Albuterol Sulfate Inhaler - [Ventolin HFA Inhaler -] 1 - 2 puff PO PRN 04/25/17 Amlodipine Besylate 5 mg PO DAILY 04/25/17 Aspirin [Adult Aspirin Regimen] 81 mg PO DAILY 04/25/17 Atorvastatin Ca [Lipitor] 40 mg PO HS 04/25/17 Carvedilol 12.5 mg PO DAILY 04/25/17 Clopidogrel Bisulfate [Plavix] 75 mg PO DAILY 04/25/17 Ergocalciferol (Vitamin D2) [Vitamin D2] 50,000 unit PO DAILY 04/25/17 Ezetimibe [Zetia] 10 mg PO DAILY 04/25/17 Furosemide [Lasix] 20 mg PO DAILY 04/25/17 Gabapentin 600 mg PO TID 04/25/17 Linagliptin [Tradjenta] 5 mg PO DAILY 04/25/17 Lisinopril 20 mg PO DAILY 04/25/17 Review of Systems - Review of Systems Constitutional: reports: Lethargy, Malaise. denies: Chills, Fever, Night Sweats , Unintentional Wgt. Loss, Weakness Eyes: reports: No Symptoms HENT: reports: No Symptoms Neck: reports: No Symptoms Cardiovascular: reports: Edema, Shortness of Breath. denies: Chest Pain, Palpitations Respiratory: reports: Cough, Snoring, SOB, SOB on Exertion, Wheezing. denies: Hemoptysis Gastrointestinal: reports: No Symptoms Genitourinary: reports: No Symptoms Breasts: reports: No Symptoms Reported Musculoskeletal: reports: No Symptoms Integumentary: reports: No Symptoms Endocrine: reports: No Symptoms Hematology/Lymphatic: reports: No Symptoms Psychiatric: reports: No Symptoms Physical Exam Vital Sings: Vital Signs Temperature 98.4 F 04/26/17 14:00 Pulse Rate 66 04/26/17 14:00 Respiratory Rate 19 04/26/17 14:00 Blood Pressure 130/54 04/26/17 14:00 O2 Sat by Pulse Oximetry (%) 99 04/26/17 14:00 Constitutional: Yes: No Distress, Obese Eyes: Yes: Conjunctiva Clear, EOM Intact HENT: Yes: Atraumatic, Normocephalic Neck: Yes: Supple, Trachea Midline Cardiovascular: Yes: Regular Rate and Rhythm Respiratory: Yes: Cough, Diminished, On Nasal O2, Rhonchi, SOB, Tachypnea, Wheezes. No: Accessory Muscle Use, Rales, Stridor ...Inspection: Yes: WNL ...Clubbing: No Gastrointestinal: Yes: Normal Bowel Sounds, Soft, Abdomen, Obese Renal/: Yes: WNL Musculoskeletal: Yes: WNL Extremities: Yes: Cool, Delayed Capillary Refill Edema: Yes Peripheral Pulses WNL: No Integumentary: Yes: Venous Stasis Changes Neurological: Yes: Alert, Oriented ...Motor Strength: WNL Psychiatric: Yes: WNL, Alert, Oriented Labs: CBC, BMP 04/26/17 07:15 04/26/17 07:15 Imaging - Results Chest X-ray: Report Reviewed, Image Reviewed Problem List - Problems (1) Acute bronchitis Code(s): J20.9 - ACUTE BRONCHITIS, UNSPECIFIED (2) CAD (coronary artery disease) Code(s): I25.10 - ATHSCL HEART DISEASE OF [place] CORONARY ARTERY W/O ANG PCTRS (3) CHF exacerbation Code(s): I50.9 - HEART FAILURE, UNSPECIFIED (4) COPD exacerbation Code(s): J44.1 - CHRONIC OBSTRUCTIVE PULMONARY DISEASE W (ACUTE) EXACERBATION (5) CVA (cerebral vascular accident) Code(s): I63.9 - CEREBRAL INFARCTION, UNSPECIFIED (6) Diabetes mellitus Code(s): E11.9 - TYPE 2 DIABETES MELLITUS WITHOUT COMPLICATIONS (7) HLD (hyperlipidemia) Code(s): E78.5 - HYPERLIPIDEMIA, UNSPECIFIED (8) HTN (hypertension) Code(s): I10 - ESSENTIAL (PRIMARY) HYPERTENSION (9) MARLINE (obstructive sleep apnea) Code(s): G47.33 - OBSTRUCTIVE SLEEP APNEA (ADULT) (PEDIATRIC) (10) PAD (peripheral artery disease) Code(s): I73.9 - PERIPHERAL VASCULAR DISEASE, UNSPECIFIED Assessment/Plan Suspect combination of AE of COPD and Decompensated CHF Prednisone daily BD TX Lasix BID Daily weight I&O monitoring O2 as needed Patient reports that Dr Harrell's office is in the process of optimizing his OSAS treatment and apparently a new device is being ordered Would monitor off ABX Patient meets the criteria for lung CT screening. Can be done while hospitalized or after D/C No smoking counseled Thank you. Dr Buitrago
[2017-04-26] MEDS ORDERED: ALBUTEROL SO4 0.083% IH SOL 2.5 MG/3 ML VIAL.NEB. NEB PRN (16:32)
--- NOTE | 2017-04-26 18:38 | EKG ---
Test Reason : Blood Pressure : / mmHG Vent. Rate : 082 BPM Atrial Rate : 082 BPM P-R Int : 188 ms QRS Dur : 086 ms QT Int : 364 ms P-R-T Axes : 059 -11 107 degrees QTc Int : 425 ms SINUS RHYTHM WITH FREQUENT PREMATURE VENTRICULAR COMPLEXES ANTERIOR INFARCT , AGE UNDETERMINED ABNORMAL ECG NO PREVIOUS ECGS AVAILABLE Confirmed by SHAHANA HOSKINS MD ([id number]) on 04/26/2017 6:37:41 PM Referred By: MD FOLEY Confirmed By:SHAHANA HOSKINS MD
[2017-04-26 20:19] LABS: URINE APPEARANCE Clear; URINE BILIRUBIN Negative (NEGATIVE); URINE GLUCOSE (UA) Negative (NEGATIVE); URINE KETONE Negative (NEGATIVE); URINE LEUK ESTERASE Negative (NEGATIVE); URINE NITRITE Negative (NEGATIVE); URINE UROBILINOGEN 0.2 (0.2-1.0)
[2017-04-26 20:29] LABS: URINE BLOOD Trace-intact (NEGATIVE); URINE COLOR YELLOW; URINE PROTEIN 1+ (NEGATIVE)
[2017-04-26] MEDS: ALBUTEROL SO4 2.5/IPRATROPIUM 0.5 INH SOL 3 ML VIAL.NEB. NEB SCH (20:45)
[2017-04-26] MEDS: ATORVASTATIN CA 40 MG TABLET (FP) PO SCH (21:29)
[2017-04-26 21:53] LABS: EPI CELLS RARE /HPF; URINE BACTERIA RARE /hpf (NEGATIVE); URINE WBC 0-2 (0-2)
[2017-04-27] MEDS: FUROSEMIDE 40 MG/4 ML INJECTABLE VIAL IVPUSH SCH ×2 (04:31→05:59)
[2017-04-27] MEDS: GABAPENTIN 300 MG CAPSULE (FP) PO SCH ×3 (05:59→21:24)
[2017-04-27] MEDS ORDERED: INSULIN (NOVOLOG) ASPART 100 UNITS/ML 10ML VIAL ONE ×2 (06:47→21:20)
[2017-04-27] MEDS: INSULIN SLIDING SCALE (NOVOLOG) 1 VIAL SQ SCH ×3 (06:49→21:24)
[2017-04-27 08:51] LABS: ALBUMIN 3.5 g/dl (3.5-5.0); ALK PHOS 120 U/L (32-92); ANION GAP 7 (8-16); BILIRUBIN,TOTAL 0.8 mg/dl (0.2-1.0); BLOOD UREA NITROGEN 36 mg/dl (7-18); CALCIUM 9.1 mg/dl (8.4-10.2); CHLORIDE 97 mmol/L (98-107); CO2 32 mmol/L (22-28); CREATININE 1.4 mg/dl (0.6-1.3); GLUCOSE,RANDOM 205 mg/dl (74-106); SGOT/AST 30 U/L (10-42); SGPT/ALT 35 U/L (10-40); SODIUM 136 mmol/L (136-145); TOT PROT 6.8 g/dl (6.4-8.3)
[2017-04-27] MEDS: amLODIPine BESYLATE 5 MG TABLET (FP) PO SCH (10:07)
[2017-04-27] MEDS: ASPIRIN COATED 81 MG TABLET.EC PO SCH (10:07)
[2017-04-27] MEDS: CARVEDILOL 12.5 MG TABLET (FP) PO SCH (10:07)
[2017-04-27] MEDS: predniSONE 20 MG TABLET (UD) PO SCH (10:07)
[2017-04-27] MEDS: ALBUTEROL SO4 2.5/IPRATROPIUM 0.5 INH SOL 3 ML VIAL.NEB. NEB SCH ×3 (10:08→19:50)
[2017-04-27] MEDS: CLOPIDOGREL BISULFATE 75 MG TABLET (FP) PO SCH (10:08)
[2017-04-27] MEDS: LISINOPRIL 20 MG TABLET (FP) PO SCH (10:08)
[2017-04-27] MEDS: EZETIMIBE 10 MG TABLET (FP) PO SCH (10:08)
--- NOTE | 2017-04-27 11:57 | PN ---
Physical Exam: SUBJECTIVE: Patient seen and examined OBJECTIVE: Vital Signs Period Temp Pulse Resp BP Sys/Ni Pulse Ox Last 24 Hr 97.3 F-98.4 F 66-71 18-20 128-146/54-65 95-100 GENERAL: The patient is awake, alert, and fully oriented, in no acute distress. HEAD: Normal with no signs of trauma. EYES: PERRL, extraocular movements intact, sclera anicteric, conjunctiva clear. No ptosis. ENT: Ears normal, nares patent, oropharynx clear without exudates, moist mucous membranes. NECK: Trachea midline, full range of motion, supple. LUNGS: Breath sounds equal, clear to auscultation bilaterally, no wheezes, no crackles, no accessory muscle use. HEART: Regular rate and rhythm, S1, S2 without murmur, rub or gallop. ABDOMEN: Soft, nontender, nondistended, normoactive bowel sounds, no guarding, no rebound, no hepatosplenomegaly, no masses. EXTREMITIES: 2+ pulses, warm, well-perfused, no edema. NEUROLOGICAL: Cranial nerves II through XII grossly intact. Normal speech, gait not observed. PSYCH: Normal mood, normal affect. SKIN: Warm, dry, normal turgor, no rashes or lesions noted Laboratory Results - last 24 hr 04/26/17 04/26/17 04/26/17 11:49 20:00 20:00 Sodium Potassium Chloride Carbon Dioxide Anion Gap BUN Creatinine Creat Clearance w eGFR POC Glucometer 138 Random Glucose Calcium Total Bilirubin AST ALT Alkaline Phosphatase Total Protein Albumin Urine Color Yellow Urine Appearance Clear Urine pH 5.0 Ur Specific [place] 1.010 Urine Protein 1+ H Urine Glucose (UA) Negative Urine Ketones Negative Urine Blood Trace-intact H Urine Nitrite Negative Urine Bilirubin Negative Urine Urobilinogen 0.2 Ur Leukocyte Esterase Negative Urine RBC 2-5 Urine WBC 0-2 Ur Epithelial Cells Rare Urine Bacteria Rare Ur Random Sodium 71 Urine Creatinine 04/26/17 04/26/17 04/27/17 20:00 21:32 06:43 Sodium Potassium Chloride Carbon Dioxide Anion Gap BUN Creatinine Creat Clearance w eGFR POC Glucometer 320 191 Random Glucose Calcium Total Bilirubin AST ALT Alkaline Phosphatase Total Protein Albumin Urine Color Urine Appearance Urine pH Ur Specific [place] Urine Protein Urine Glucose (UA) Urine Ketones Urine Blood Urine Nitrite Urine Bilirubin Urine Urobilinogen Ur Leukocyte Esterase Urine RBC Urine WBC Ur Epithelial Cells Urine Bacteria Ur Random Sodium Urine Creatinine 36.3 04/27/17 07:00 Sodium 136 Potassium 4.0 Chloride 97 L Carbon Dioxide 32 H Anion Gap 7 L BUN 36 H D Creatinine 1.4 H Creat Clearance w eGFR 50.55 POC Glucometer Random Glucose 205 H D Calcium 9.1 Total Bilirubin 0.8 AST 30 ALT 35 Alkaline Phosphatase 120 H Total Protein 6.8 Albumin 3.5 Urine Color Urine Appearance Urine pH Ur Specific [place] Urine Protein Urine Glucose (UA) Urine Ketones Urine Blood Urine Nitrite Urine Bilirubin Urine Urobilinogen Ur Leukocyte Esterase Urine RBC Urine WBC Ur Epithelial Cells Urine Bacteria Ur Random Sodium Urine Creatinine Active Medications Generic Name Dose Route Start Last Admin Trade Name Freq PRN Reason Stop Dose Admin Albuterol Sulfate 1 amp 04/26/17 16:32 Ventolin 0.083% Nebulizer Soln - NEB Q4H PRN SHORT OF BREATH/WHEEZING Albuterol/Ipratropium 1 amp 04/26/17 20:00 04/27/17 10:08 Duoneb - NEB 1 amp RTID ZAKIYA Administration Amlodipine Besylate 5 mg 04/26/17 10:00 04/27/17 10:07 Norvasc - PO 5 mg DAILY ZAKIYA Administration Aspirin 81 mg 04/26/17 10:00 04/27/17 10:07 Ecotrin - PO 81 mg DAILY ZAKIYA Administration Atorvastatin Calcium 40 mg 04/25/17 22:00 04/26/17 21:29 Lipitor - PO 40 mg HS ZAKIYA Administration Carvedilol 12.5 mg 04/26/17 10:00 04/27/17 10:07 Coreg - PO 12.5 mg DAILY ZAKIYA Administration Clopidogrel Bisulfate 75 mg 04/26/17 10:00 04/27/17 10:08 Plavix - PO 75 mg DAILY ZAKIYA Administration Ezetimibe 10 mg 04/26/17 10:00 04/27/17 10:08 Zetia - PO 10 mg DAILY ZAKIYA Administration Furosemide 40 mg 04/26/17 06:15 04/27/17 05:59 Lasix Injection - IVPUSH 40 mg BID@0600,1400 ZAKIYA Administration Gabapentin 600 mg 04/25/17 22:00 04/27/17 05:59 Neurontin - PO 600 mg TID ZAKIYA Administration Insulin Aspart 1 vial 04/26/17 11:00 04/27/17 06:49 Novolog Vial Sliding Scale - SQ 2 units ACHS ZAKIYA Administration Protocol Lisinopril 20 mg 04/26/17 10:00 04/27/17 10:08 Prinivil PO 20 mg DAILY ZAKIYA Administration Prednisone 40 mg 04/27/17 10:00 04/27/17 10:07 Deltasone - PO 05/01/17 10:01 40 mg DAILY ZAKIYA Administration ASSESSMENT/PLAN 66 year-old male with a PMH significant for HTN, HLD, CHF, chronic venous insufficiency, COPD, [place], NIDDM. Admitted for CHF exacerbation. CHF exacerbation --no echo available, cannot document whether this is systolic v. diastolic --significant lower extremity edema, congestive changes on CXR --no change in weight, increase Lasix IV 80mg BID --US renal unremarkable --strict I&Os, daily weights NICM --patient reports recent cath with non-obstructive disease --continue ASA, Plavix Hypertension --BP stable --continue amlodipine, carvedilol, lisinopril Hyperlipidemia --continue Lipitor, Zetia Chronic venous insufficiency --vein stripping a month ago --compression wrap, keep legs elevated when not walking --lac hydrin BID COPD --per pulmonary continue solumedrol NIDDM --Novolog sliding scale coverage FEN Fluids: PO intake adequate; consider fluid restriction Electrolytes: replete as indicated Nutrition: low sodium, diabetic DVT prophylaxis: subq heparin, oob, ambulation Physical therapy Dispo: continues to require inpatient care. Full code. Visit type - Emergency Visit Emergency Visit: Yes ED Registration Date: 04/26/17 Care time: The patient presented to the Emergency Department on the above date and was hospitalized for further evaluation of their emergent condition. - New Patient This patient is new to me today: No - Critical Care Critical Care patient: No
[2017-04-27] MEDS ORDERED: AMMONIUM LACTATE 12% LOTION 225 GM BOTTLE TP PRN (12:01)
[2017-04-27] MEDS: ATORVASTATIN CA 40 MG TABLET (FP) PO SCH (21:24)
[2017-04-28] MEDS: FUROSEMIDE 40 MG/4 ML INJECTABLE VIAL IVPUSH SCH ×2 (06:37→14:20)
[2017-04-28] MEDS: INSULIN SLIDING SCALE (NOVOLOG) 1 VIAL SQ SCH ×4 (06:38→21:34)
[2017-04-28] MEDS: GABAPENTIN 300 MG CAPSULE (FP) PO SCH ×3 (06:38→21:36)
[2017-04-28] MEDS: HEPARIN NA (PORCINE) 5,000 UNITS/ML 1ML VIAL SQ SCH ×3 (08:15→21:34)
[2017-04-28] MEDS: ALBUTEROL SO4 2.5/IPRATROPIUM 0.5 INH SOL 3 ML VIAL.NEB. NEB SCH ×3 (08:55→21:36)
[2017-04-28 09:29] LABS: BASO % 0.9 % (0-2.0); EOS % 0.1 % (0-4.5); HEMATOCRIT 44.8 % (35.4-49); HEMOGLOBIN 15.4 GM/dl (11.7-16.9); LYMPH % 9.3 % (8-40); MCH 30.9 pg (25.7-33.7); MCHC 34.3 g/dl (32.0-35.9); MEAN CELL VOLUME 89.9 fl (80-96); MEAN PLT VOLUME 9.5 fl (7.5-11.1); MONO % 4.8 % (3.8-10.2); NEUT % 84.9 % (42.8-82.8); PLATELET COUNT 129 K/MM3 (134-434); RBC 4.98 M/mm3 (4.00-5.60); RDW 15.6 % (11.9-15.9); WHITE BLOOD COUNT 13.4 K/mm3 (4.0-10.8)
[2017-04-28] MEDS: CARVEDILOL 12.5 MG TABLET (FP) PO SCH (10:22)
[2017-04-28] MEDS: LISINOPRIL 20 MG TABLET (FP) PO SCH (10:23)
[2017-04-28] MEDS: EZETIMIBE 10 MG TABLET (FP) PO SCH (10:23)
[2017-04-28] MEDS: predniSONE 20 MG TABLET (UD) PO SCH (10:23)
[2017-04-28] MEDS: CLOPIDOGREL BISULFATE 75 MG TABLET (FP) PO SCH (10:24)
[2017-04-28] MEDS: amLODIPine BESYLATE 5 MG TABLET (FP) PO SCH (10:24)
[2017-04-28] MEDS: ASPIRIN COATED 81 MG TABLET.EC PO SCH (10:25)
[2017-04-28 10:26] LABS: ANION GAP 11 (8-16); BLOOD UREA NITROGEN 42 mg/dl (7-18); CHLORIDE 95 mmol/L (98-107); CO2 30 mmol/L (22-28); CREATININE 1.7 mg/dl (0.6-1.3); GLUCOSE,RANDOM 181 mg/dl (74-106); PHOSPHOROUS 4.3 mg/dl (2.5-4.6); POTASSIUM 3.3 mmol/L (3.5-5.1); SODIUM 136 mmol/L (136-145)
[2017-04-28] MEDS ORDERED: POTASSIUM CHLORIDE TABS 20 MEQ TABLET.ER (FP) PO ONE (11:45)
--- NOTE | 2017-04-28 12:52 | PN ---
Progress Note (short form) - Note Progress Note: PULMONARY SITTING IN RECLINER SUBJECTIVE IMPROVEMENT VSS ANICTERIC BIBASILAR CRACKLES S1S2 BS+ OBESE BILATERAL LOWER EXT TURNER BANDAGES LABS/MEDS/NOTES/IMAGES REVIEWED (1) Acute bronchitis Code(s): J20.9 - ACUTE BRONCHITIS, UNSPECIFIED (2) CAD (coronary artery disease) Code(s): I25.10 - ATHSCL HEART DISEASE OF [place] CORONARY ARTERY W/O ANG PCTRS (3) CHF exacerbation Code(s): I50.9 - HEART FAILURE, UNSPECIFIED (4) COPD exacerbation Code(s): J44.1 - CHRONIC OBSTRUCTIVE PULMONARY DISEASE W (ACUTE) EXACERBATION (5) CVA (cerebral vascular accident) Code(s): I63.9 - CEREBRAL INFARCTION, UNSPECIFIED (6) Diabetes mellitus Code(s): E11.9 - TYPE 2 DIABETES MELLITUS WITHOUT COMPLICATIONS (7) HLD (hyperlipidemia) Code(s): E78.5 - HYPERLIPIDEMIA, UNSPECIFIED (8) HTN (hypertension) Code(s): I10 - ESSENTIAL (PRIMARY) HYPERTENSION (9) MARLINE (obstructive sleep apnea) Code(s): G47.33 - OBSTRUCTIVE SLEEP APNEA (ADULT) (PEDIATRIC) (10) PAD (peripheral artery disease) Code(s): I73.9 - PERIPHERAL VASCULAR DISEASE, UNSPECIFIED Assessment/Plan Suspect combination of AE of COPD and Decompensated CHF Worsening renal insufficiency steroids/o2/bronchodilators Lasix BID Daily weight I&O monitoring O2 as needed Patient reports that Dr Harrell's office is in the process of optimizing his OSAS treatment and apparently a new device is being ordered Would monitor off ABX Patient meets the criteria for lung CT screening. Will order CT chest No smoking counseled Renal consult called Shell QUINONEZ MD
--- NOTE | 2017-04-28 13:08 | PN ---
Physical Exam: SUBJECTIVE: Patient seen and examined, sitting in bedside chair, reports swelling to bilateral lower extremities is much improved, reports some improvement in shortness of breath. OBJECTIVE: 66 year-old male with a PMH significant for HTN, HLD, CHF, chronic venous insufficiency, COPD, MARLINE, NIDDM. Admitted for CHF exacerbation Vital Signs Period Temp Pulse Resp BP Sys/Ni Pulse Ox Last 24 Hr 97.7 F-97.8 F 57-62 19-20 152-160/75-82 94-97 GENERAL: The patient is awake, alert, and fully oriented, in no acute distress. HEAD: Normal with no signs of trauma. EYES: PERRL, extraocular movements intact, sclera anicteric, conjunctiva clear. No ptosis. ENT: Ears normal, nares patent, oropharynx clear without exudates, moist mucous membranes. NECK: Trachea midline, full range of motion, supple. LUNGS: Breath sounds equal, clear to apexes, crackles to bases bilaterally, no wheezes, no accessory muscle use. HEART: Regular rate and rhythm, S1, S2 without murmur, rub or gallop. ABDOMEN: Soft, nontender, nondistended, normoactive bowel sounds, no guarding, no rebound, no hepatosplenomegaly, no masses. EXTREMITIES: 2+ pulses, warm, well-perfused, + 3 pitting edema billaterally with venous stasis changes. NEUROLOGICAL: Cranial nerves II through XII grossly intact. Normal speech, gait not observed. PSYCH: Normal mood, normal affect. SKIN: Warm, dry, normal turgor, no rashes or lesions noted Laboratory Results - last 24 hr 04/27/17 04/28/17 04/28/17 19:53 06:33 08:25 WBC 13.4 H D RBC 4.98 Hgb 15.4 Hct 44.8 MCV 89.9 MCH 30.9 MCHC 34.3 RDW 15.6 Plt Count 129 L D MPV 9.5 Neutrophils % 84.9 H Lymphocytes % 9.3 D Monocytes % 4.8 Eosinophils % 0.1 D Basophils % 0.9 Sodium Potassium Chloride Carbon Dioxide Anion Gap BUN Creatinine POC Glucometer 277 153 Random Glucose Calcium Phosphorus Magnesium 04/28/17 04/28/17 08:25 12:27 WBC RBC Hgb Hct MCV MCH MCHC RDW Plt Count MPV Neutrophils % Lymphocytes % Monocytes % Eosinophils % Basophils % Sodium 136 Potassium 3.3 L Chloride 95 L Carbon Dioxide 30 H Anion Gap 11 BUN 42 H Creatinine 1.7 H D POC Glucometer 162 Random Glucose 181 H Calcium 9.0 Phosphorus 4.3 D Magnesium 2.0 Active Medications Generic Name Dose Route Start Last Admin Trade Name Freq PRN Reason Stop Dose Admin Albuterol Sulfate 1 amp 04/26/17 16:32 Ventolin 0.083% Nebulizer Soln - NEB Q4H PRN SHORT OF BREATH/WHEEZING Albuterol/Ipratropium 1 amp 04/26/17 20:00 04/28/17 08:55 Duoneb - NEB 1 amp RTID ZAKIYA Administration Amlodipine Besylate 5 mg 04/26/17 10:00 04/28/17 10:24 Norvasc - PO 5 mg DAILY ZAKIYA Administration Aspirin 81 mg 04/26/17 10:00 04/28/17 10:25 Ecotrin - PO 81 mg DAILY ZAKIYA Administration Atorvastatin Calcium 40 mg 04/25/17 22:00 04/27/17 21:24 Lipitor - PO 40 mg HS ZAKIYA Administration Carvedilol 12.5 mg 04/26/17 10:00 04/28/17 10:22 Coreg - PO 12.5 mg DAILY ZAKIYA Administration Clopidogrel Bisulfate 75 mg 04/26/17 10:00 04/28/17 10:24 Plavix - PO 75 mg DAILY ZAKIYA Administration Ezetimibe 10 mg 04/26/17 10:00 04/28/17 10:23 Zetia - PO 10 mg DAILY ZAKIYA Administration Furosemide 80 mg 04/27/17 14:00 04/28/17 06:37 Lasix Injection - IVPUSH 80 mg BID@0600,1400 ZAKIYA Administration Gabapentin 600 mg 04/25/17 22:00 04/28/17 06:38 Neurontin - PO 600 mg TID ZAKIYA Administration Heparin Sodium (Porcine) 5,000 unit 04/28/17 08:02 04/28/17 08:15 Heparin - SQ 5,000 unit TID ZAKIYA Administration Insulin Aspart 1 vial 04/26/17 11:00 04/28/17 06:38 Novolog Vial Sliding Scale - SQ 2 units ACHS ZAKIYA Administration Protocol Lactic Acid 1 applic 04/27/17 12:01 Lac-Hydrin 12 TP BID PRN DRY SKIN Lisinopril 20 mg 04/26/17 10:00 04/28/17 10:23 Prinivil PO 20 mg DAILY ZAKIYA Administration Prednisone 40 mg 04/27/17 10:00 04/28/17 10:23 Deltasone - PO 05/01/17 10:01 40 mg DAILY ZAKIYA Administration ASSESSMENT/PLAN: 1) cardiovascular acute CHF exacerbation - pending echo today - 3.2 kg weight loss noted, continue lasix 80mg bid, continue strict i/o and daily weight - pending ct of chest today - recent cardiac cath 2013-->nicm, continue plavix and asa Hypertension - b/p at goal, continue amlodipine, carvedilol, lisinopril Chronic venous insufficiency - s/p -vein stripping in 03/30 - bilateral compression bandaging, keep legs elevated when not walking - lac hydrin BID 2) pulm COPD - no wheezing noted on exam, transition solumedrol to prednisone - start symbicort, continue duonebs - keep spo2 above 92% with supplemental o2 3) endo NIDDM - Novolog sliding scale coverage FEN Fluids: PO intake adequate; 1L fluid restriction Electrolytes: replete as indicated Nutrition: low sodium, diabetic DVT prophylaxis: subq heparin, oob, ambulation Physical therapy Dispo: continues to require inpatient care. Full code. Visit type - Emergency Visit Emergency Visit: Yes ED Registration Date: 04/26/17 Care time: The patient presented to the Emergency Department on the above date and was hospitalized for further evaluation of their emergent condition. - New Patient This patient is new to me today: Yes Date on this admission: 04/28/17 - Critical Care Critical Care patient: No - Discharge Referral Referred to [facility] Med P.C.: No
[2017-04-28] MEDS: BUDESONIDE/FORMETEROL FUMARATE 80/4.5 mcg INHALER IH SCH ×2 (17:26→21:37)
--- NOTE | 2017-04-28 17:34 | CONSULT ---
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 He says that his breathing has been progressively worse. He denies chest pain or palpitations. He is on home oxygen and does use lasix as well. He was found to have elevated creatinine and I was called to evaluate him. He denies history of CKD. He does have history of nephrolithiasis. He denies hematuria or dysuria. He denies nsaid use. - History Source History Provided By: Patient - Past Medical History FINANCIAL REPORTING ADVISOR: Yes: CVA (neg deficits) Cardio/Vascular: Yes: CHF, HTN, Hyperlipdemia, Other (PAD) Pulmonary: Yes: COPD, Sleep Apnea Renal/: Yes: Renal Inusuff Endocrine: Yes: Diabetes Mellitus - Alcohol/Substance Use Hx Alcohol Use: No History of Substance Use: reports: None - Smoking History Smoking history: Former smoker Have you smoked in the past 12 months: Yes Aproximately how many cigarettes per day: 40 (2PPD x 30 yrs) If you are a former smoker, when did you quit?: 03/2017 - Social History ADL: Family Assistance History of Recent Travel: No Home Medications - Allergies Allergies/Adverse Reactions: Allergies Allergy/AdvReac Type Severity Reaction Status Date / Time No Known Allergies Allergy Unverified 04/25/17 15:38 - Home Medications Home Medications: Ambulatory Orders Albuterol Sulfate Inhaler - [Ventolin HFA Inhaler -] 1 - 2 puff PO PRN 04/25/17 Amlodipine Besylate 5 mg PO DAILY 04/25/17 Aspirin [Adult Aspirin Regimen] 81 mg PO DAILY 04/25/17 Atorvastatin Ca [Lipitor] 40 mg PO HS 04/25/17 Carvedilol 12.5 mg PO DAILY 04/25/17 Clopidogrel Bisulfate [Plavix] 75 mg PO DAILY 04/25/17 Ergocalciferol (Vitamin D2) [Vitamin D2] 50,000 unit PO DAILY 04/25/17 Ezetimibe [Zetia] 10 mg PO DAILY 04/25/17 Furosemide [Lasix] 20 mg PO DAILY 04/25/17 Gabapentin 600 mg PO TID 04/25/17 Linagliptin [Tradjenta] 5 mg PO DAILY 04/25/17 Lisinopril 20 mg PO DAILY 04/25/17 Family Disease History - Family Disease History Family History: Denies Review of Systems - Review of Systems Constitutional: reports: Malaise. denies: Chills, Fever Eyes: reports: No Symptoms HENT: reports: No Symptoms Neck: reports: No Symptoms Cardiovascular: reports: Edema, Shortness of Breath Respiratory: reports: SOB, SOB on Exertion Genitourinary: reports: No Symptoms Musculoskeletal: reports: No Symptoms Integumentary: reports: Change in Color Neurological: reports: No Symptoms Endocrine: reports: No Symptoms Hematology/Lymphatic: reports: No Symptoms Psychiatric: reports: No Symptoms Physical Exam Vital Signs: Vital Signs Temperature 97.6 F 04/28/17 14:07 Pulse Rate 60 04/28/17 14:07 Respiratory Rate 19 04/28/17 14:07 Blood Pressure 115/55 04/28/17 14:07 O2 Sat by Pulse Oximetry (%) 96 04/28/17 14:07 Constitutional: Yes: Calm Eyes: Yes: Conjunctiva Clear HENT: Yes: Atraumatic Neck: Yes: Supple Cardiovascular: Yes: S1, S2 Respiratory: Yes: On Nasal O2, Wheezes Gastrointestinal: Yes: Soft, Abdomen, Obese Renal/: Yes: WNL Musculoskeletal: Yes: WNL Edema: Yes Edema: LLE: 2+, RLE: 2+ Integumentary: Yes: Venous Stasis Changes Neurological: Yes: Oriented Psychiatric: Yes: Oriented Labs: CBC, BMP 04/28/17 08:25 04/28/17 08:25 Laboratory Tests 11/11/15 04/25/17 04/25/17 11:00 16:40 17:00 WBC Hgb Sodium Potassium Chloride Carbon Dioxide BUN Creatinine 1.6 H 1.3 Urine Protein 2+ H Urine Blood 1+ H 04/26/17 04/26/17 04/27/17 07:15 20:00 07:00 WBC Hgb 15.4 Sodium Potassium Chloride Carbon Dioxide BUN 36 H D Creatinine 1.4 H Urine Protein 1+ H Urine Blood Trace-intact H 04/28/17 04/28/17 08:25 08:25 WBC 13.4 H D Hgb 15.4 Sodium 136 Potassium 3.3 L Chloride 95 L Carbon Dioxide 30 H BUN 42 H Creatinine 1.7 H D Urine Protein Urine Blood Imaging - Results Chest X-ray: Report Reviewed Ultrasound: Report Reviewed Problem List - Problems (1) CKD (chronic kidney disease) Code(s): N18.9 - CHRONIC KIDNEY DISEASE, UNSPECIFIED (2) CAD (coronary artery disease) Code(s): I25.10 - ATHSCL HEART DISEASE OF [place] CORONARY ARTERY W/O ANG PCTRS (3) CHF exacerbation Code(s): I50.9 - HEART FAILURE, UNSPECIFIED (4) COPD exacerbation Code(s): J44.1 - CHRONIC OBSTRUCTIVE PULMONARY DISEASE W (ACUTE) EXACERBATION (5) CVA (cerebral vascular accident) Code(s): I63.9 - CEREBRAL INFARCTION, UNSPECIFIED (6) Diabetes mellitus Code(s): E11.9 - TYPE 2 DIABETES MELLITUS WITHOUT COMPLICATIONS Assessment/Plan Current Medications Generic Name Dose Route Start Last Admin Trade Name Freq PRN Reason Stop Dose Admin Albuterol Sulfate 1 amp 04/26/17 16:32 Ventolin 0.083% Nebulizer Soln - NEB Q4H PRN SHORT OF BREATH/WHEEZING Albuterol/Ipratropium 1 amp 04/26/17 20:00 04/28/17 14:45 Duoneb - NEB 1 amp RTID ZAKIYA Administration Amlodipine Besylate 5 mg 04/26/17 10:00 04/28/17 10:24 Norvasc - PO 5 mg DAILY ZAKIYA Administration Aspirin 81 mg 04/26/17 10:00 04/28/17 10:25 Ecotrin - PO 81 mg DAILY ZAKIYA Administration Atorvastatin Calcium 40 mg 04/25/17 22:00 04/27/17 21:24 Lipitor - PO 40 mg HS ZAKIYA Administration Budesonide/Formoterol Fumarate 2 puff 04/28/17 13:45 04/28/17 17:26 Symbicort 80/4.5mcg - IH 2 inh BID ZAKIYA Administration Carvedilol 12.5 mg 04/26/17 10:00 04/28/17 10:22 Coreg - PO 12.5 mg DAILY ZAKIYA Administration Clopidogrel Bisulfate 75 mg 04/26/17 10:00 04/28/17 10:24 Plavix - PO 75 mg DAILY ZAKIYA Administration Ezetimibe 10 mg 04/26/17 10:00 04/28/17 10:23 Zetia - PO 10 mg DAILY ZAKIYA Administration Furosemide 80 mg 04/27/17 14:00 04/28/17 14:20 Lasix Injection - IVPUSH 80 mg BID@0600,1400 ZAKIYA Administration Gabapentin 600 mg 04/25/17 22:00 04/28/17 14:00 Neurontin - PO 600 mg TID ZAKIYA Administration Heparin Sodium (Porcine) 5,000 unit 04/28/17 08:02 04/28/17 14:10 Heparin - SQ 5,000 unit TID ZAKIYA Administration Insulin Aspart 1 vial 04/26/17 11:00 04/28/17 16:59 Novolog Vial Sliding Scale - SQ 6 units ACHS ZAKIYA Administration Protocol Lactic Acid 1 applic 04/27/17 12:01 Lac-Hydrin 12 TP BID PRN DRY SKIN Lisinopril 20 mg 04/26/17 10:00 04/28/17 10:23 Prinivil PO 20 mg DAILY ZAKIYA Administration Prednisone 40 mg 04/27/17 10:00 04/28/17 10:23 Deltasone - PO 05/01/17 10:01 40 mg DAILY ZAKIYA Administration Laboratory Tests 11/11/15 11:00 Creatinine 1.6 H Impression 1. CKD 2. CHF 3. obesity 4. hx CVA 5. CAD 6. HTN 7. DM 8. MARLINE 9. PAD 10. COPD Plan - pt likely has CKD as he had elevated creatinine in 2005 - renal ultrasound reviewed - will send prelim renal workup however he will need to follow in office - check urine prt to inventory administrator ratio - check anca - repeat cxr - chart, labs and med reviewed - cont richard and cont lisinopril - will follow Dr Calvin
--- NOTE | 2017-04-28 18:36 | PN ---
Progress Note (short form) - Note Progress Note: cc: sob S: sob, LE edema improving. But still significantly worse than baseline. still unable to ambulate without dyspnea. (States his weight has been increasing on home lasix 40 mg/day for the past 6 months). no cp , palps, dizziness. reviewed chest ct and echo results. Current Medications Albuterol Sulfate (Ventolin 0.083% Nebulizer Soln -) 1 amp NEB Q4H PRN PRN Reason: SHORT OF BREATH/WHEEZING Albuterol/Ipratropium (Duoneb -) 1 amp NEB RTID [facility] Last Admin: 04/28/17 14:45 Dose: 1 amp Amlodipine Besylate (Norvasc -) 5 mg PO DAILY [facility] Last Admin: 04/28/17 10:24 Dose: 5 mg Aspirin (Ecotrin -) 81 mg PO DAILY [facility] Last Admin: 04/28/17 10:25 Dose: 81 mg Atorvastatin Calcium (Lipitor -) 40 mg PO HS [facility] Last Admin: 04/27/17 21:24 Dose: 40 mg Budesonide/Formoterol Fumarate (Symbicort 80/4.5mcg -) 2 puff IH BID [facility] Last Admin: 04/28/17 17:26 Dose: 2 inh Carvedilol (Coreg -) 12.5 mg PO DAILY [facility] Last Admin: 04/28/17 10:22 Dose: 12.5 mg Clopidogrel Bisulfate (Plavix -) 75 mg PO DAILY [facility] Last Admin: 04/28/17 10:24 Dose: 75 mg Ezetimibe (Zetia -) 10 mg PO DAILY [facility] Last Admin: 04/28/17 10:23 Dose: 10 mg Furosemide (Lasix Injection -) 80 mg IVPUSH BID@0600,1400 [facility] Last Admin: 04/28/17 14:20 Dose: 80 mg Gabapentin (Neurontin -) 600 mg PO TID [facility] Last Admin: 04/28/17 14:00 Dose: 600 mg Heparin Sodium (Porcine) (Heparin -) 5,000 unit SQ TID [facility] Last Admin: 04/28/17 14:10 Dose: 5,000 unit Insulin Aspart (Novolog Vial Sliding Scale -) 1 vial SQ ACHS ZAKIYA PRN Reason: Protocol Last Admin: 04/28/17 16:59 Dose: 6 units Lactic Acid (Lac-Hydrin 12) 1 applic TP BID PRN PRN Reason: DRY SKIN Lisinopril (Prinivil) 20 mg PO DAILY [facility] Last Admin: 04/28/17 10:23 Dose: 20 mg Prednisone (Deltasone -) 40 mg PO DAILY [facility] Stop: 05/01/17 10:01 Last Admin: 04/28/17 10:23 Dose: 40 mg pe: Vital Signs - 24 hr 04/27/17 04/27/17 04/27/17 21:00 22:00 22:10 Temperature 97.8 F Pulse Rate 62 Respiratory 20 Rate Blood Pressure 152/75 O2 Sat by Pulse 94 L 97 Oximetry (%) 04/28/17 04/28/17 04/28/17 05:50 09:10 14:07 Temperature 97.7 F 97.6 F Pulse Rate 57 L 60 Respiratory 19 19 19 Rate Blood Pressure 157/82 115/55 O2 Sat by Pulse 95 95 96 Oximetry (%) Intake & Output 04/26/17 04/27/17 04/28/17 04/29/17 07:59 07:59 07:59 07:59 Intake Total 939 429 6580 Output Total 750 1700 3750 500 Balance -650 -1700 -2975 690 Weight 286 lb 1 oz 284 lb 0.1 oz 279 lb 0.8 oz nad calm jvd elevated, neck supple rrr s1s2 no mrg (difficult exam due to body habitus) cta bl nl eff aaox3 2+ le edema pitting and nonpitting with chronic stasis changes, up to thigh abd nt nd pos bs no jaundice diaphoresis pos dp pt no carotid bruits CBC, BMP 04/28/17 08:25 04/28/17 08:25 tele: sr, 5 beat nsvt x 1. ecg: sr, pvcs, nl intervals, no ischemic changes cxr: chf chest ct 04/2017 (images and report reviewed): RUP centrilobular and paraseptal emphysematous changes. 5 mm noncalcifed nodule in rml. 4 mm calcified granuloma in FRANCO. no pleural effusion. mod sev cor calcification. calcified left hilar l. node. echo 04/2017: 1+ lvh. nl lv size. lv sys fn low normal. tds for rwma. nl rv size and grossly nl function. Ra, AV, MV, TV, PV not well seen. no pericardial effusion. a/p: 66 m smoker with hx syst chf (nicm), le edema/venous insuff, dm, copd, htn, hld, cva, priti here with sob. sob, acute syst chf: -pt reports reduced lvef since past 4 years. he reports non obs cad on cath at that time so likely has NICM. no signs acs. con't primary prevention regimen of statin, asa (monitor thrombocytopenia on asa). -currently with chf exacerbation, primarily right sided symptoms. - 04/28 Patient currently with rising Creatinine. However, has ckd so may be approaching his baseline. Family to bring in prior creatinine levels. Weight coming down and sx's improving on current regimen of lasix 80 mg IV bid. ( renal following). In the meanwhile will optimize afterload to augment cardiac output - add hydralazine 10 mg bid and uptitrate as needed. -daily wts, bmp, cont richard (ok per renal), coreg - aggressive lyte repletion. nsvt - still with volume overload, mgm't as above. aggressive lyte repletion. tele monitoring. le edema/venous insuff: -pt reports venous stripping done about a mos ago -cont diuresis as above htn: -monitor with above changes. hld: -cont statin, zetia + tobacco - smoking cessation counseling. priti - recommend cpap at night to optimize RV function. prior cva - no new neurologic sx's. con't asa, statin. plan discussed with patient and family.
[2017-04-28] MEDS ORDERED: PT OWN MED DRAWER 7, Y5N ONE (21:30)
[2017-04-28] MEDS: ATORVASTATIN CA 40 MG TABLET (FP) PO SCH (21:36)
[2017-04-28] MEDS: hydrALAZINE HCL 10 MG TABLET PO SCH (21:53)
[2017-04-29 00:58] LABS: URINE CREATININE 40.1 mg/dL (20-370)
[2017-04-29 01:00] LABS: RATIO URIN PROTEIN/URIN CREAT 0.37 MG/DL
[2017-04-29] MEDS: FUROSEMIDE 40 MG/4 ML INJECTABLE VIAL IVPUSH SCH (05:53)
[2017-04-29] MEDS: HEPARIN NA (PORCINE) 5,000 UNITS/ML 1ML VIAL SQ SCH ×3 (05:53→22:09)
[2017-04-29] MEDS: GABAPENTIN 300 MG CAPSULE (FP) PO SCH ×3 (05:54→22:09)
[2017-04-29] MEDS: INSULIN SLIDING SCALE (NOVOLOG) 1 VIAL SQ SCH ×5 (06:54→22:12)
--- NOTE | 2017-04-29 07:05 | PN ---
Progress Note, Physician History of Present Illness: PULMONARY ALERT,OOB-CHAIR.-RESP DISTRESS - Current Medication List Current Medications: Active Medications Albuterol Sulfate (Ventolin 0.083% Nebulizer Soln -) 1 amp NEB Q4H PRN PRN Reason: SHORT OF BREATH/WHEEZING Last Admin: 04/29/17 05:54 Dose: 1 amp Albuterol/Ipratropium (Duoneb -) 1 amp NEB RTID [facility] Last Admin: 04/28/17 21:36 Dose: 1 amp Amlodipine Besylate (Norvasc -) 5 mg PO DAILY [facility] Last Admin: 04/28/17 10:24 Dose: 5 mg Aspirin (Ecotrin -) 81 mg PO DAILY [facility] Last Admin: 04/28/17 10:25 Dose: 81 mg Atorvastatin Calcium (Lipitor -) 40 mg PO HS [facility] Last Admin: 04/28/17 21:36 Dose: 40 mg Budesonide/Formoterol Fumarate (Symbicort 80/4.5mcg -) 2 puff IH BID [facility] Last Admin: 04/28/17 21:37 Dose: 2 inh Carvedilol (Coreg -) 12.5 mg PO DAILY [facility] Last Admin: 04/28/17 10:22 Dose: 12.5 mg Clopidogrel Bisulfate (Plavix -) 75 mg PO DAILY [facility] Last Admin: 04/28/17 10:24 Dose: 75 mg Ezetimibe (Zetia -) 10 mg PO DAILY [facility] Last Admin: 04/28/17 10:23 Dose: 10 mg Furosemide (Lasix Injection -) 80 mg IVPUSH BID@0600,1400 [facility] Last Admin: 04/29/17 05:53 Dose: 80 mg Gabapentin (Neurontin -) 600 mg PO TID [facility] Last Admin: 04/29/17 05:54 Dose: 600 mg Heparin Sodium (Porcine) (Heparin -) 5,000 unit SQ TID [facility] Last Admin: 04/29/17 05:53 Dose: 5,000 unit Hydralazine HCl (Apresoline -) 10 mg PO BID [facility] Last Admin: 04/28/17 21:53 Dose: 10 mg Insulin Aspart (Novolog Vial Sliding Scale -) 1 vial SQ ACHS ZAKIYA PRN Reason: Protocol Last Admin: 04/29/17 06:54 Dose: 2 units Lactic Acid (Lac-Hydrin 12) 1 applic TP BID PRN PRN Reason: DRY SKIN Lisinopril (Prinivil) 20 mg PO DAILY [facility] Last Admin: 04/28/17 10:23 Dose: 20 mg Prednisone (Deltasone -) 40 mg PO DAILY [facility] Stop: 05/01/17 10:01 Last Admin: 04/28/17 10:23 Dose: 40 mg - Objective Vital Signs: Vital Signs Temperature 97.6 F 04/29/17 05:48 Pulse Rate 62 04/29/17 05:48 Respiratory Rate 18 04/29/17 05:48 Blood Pressure 138/60 04/29/17 05:48 O2 Sat by Pulse Oximetry (%) 95 04/29/17 05:48 Constitutional: Yes: Well Nourished, Calm, Obese Eyes: Yes: WNL HENT: Yes: WNL Neck: Yes: WNL Cardiovascular: Yes: Regular Rate and Rhythm, S1, S2 Respiratory: Yes: Diminished Gastrointestinal: Yes: Normal Bowel Sounds, Soft Extremities: Yes: WNL Edema: Yes Assessment/Plan Problem List - Problems (1) Acute bronchitis Code(s): J20.9 - ACUTE BRONCHITIS, UNSPECIFIED (2) CAD (coronary artery disease) Code(s): I25.10 - ATHSCL HEART DISEASE OF [place] CORONARY ARTERY W/O ANG PCTRS (3) CHF exacerbation Code(s): I50.9 - HEART FAILURE, UNSPECIFIED (4) COPD exacerbation Code(s): J44.1 - CHRONIC OBSTRUCTIVE PULMONARY DISEASE W (ACUTE) EXACERBATION (5) CVA (cerebral vascular accident) Code(s): I63.9 - CEREBRAL INFARCTION, UNSPECIFIED (6) Diabetes mellitus Code(s): E11.9 - TYPE 2 DIABETES MELLITUS WITHOUT COMPLICATIONS (7) HLD (hyperlipidemia) Code(s): E78.5 - HYPERLIPIDEMIA, UNSPECIFIED (8) HTN (hypertension) Code(s): I10 - ESSENTIAL (PRIMARY) HYPERTENSION (9) MARLINE (obstructive sleep apnea) Code(s): G47.33 - OBSTRUCTIVE SLEEP APNEA (ADULT) (PEDIATRIC) (10) PAD (peripheral artery disease) Code(s): I73.9 - PERIPHERAL VASCULAR DISEASE, UNSPECIFIED Assessment/Plan AE of COPD and Decompensated CHF Prednisone BD TX Lasix BID Daily weight I&O monitoring O2 as needed Patient reports that Dr Harrell's office is in the process of optimizing his OSAS treatment and apparently a new device is being ordered DR HARRIS
[2017-04-29 08:38] LABS: HEMATOCRIT 46.1 % (35.4-49); HEMOGLOBIN 15.1 GM/dl (11.7-16.9); MCH 29.3 pg (25.7-33.7); MCHC 32.7 g/dl (32.0-35.9); MEAN CELL VOLUME 89.7 fl (80-96); MEAN PLT VOLUME 9.4 fl (7.5-11.1); PLATELET COUNT 124 K/MM3 (134-434); RBC 5.14 M/mm3 (4.00-5.60); RDW 15.9 % (11.9-15.9); WHITE BLOOD COUNT 9.9 K/mm3 (4.0-10.8)
[2017-04-29] MEDS: ALBUTEROL SO4 2.5/IPRATROPIUM 0.5 INH SOL 3 ML VIAL.NEB. NEB SCH ×3 (08:40→22:08)
[2017-04-29 08:48] LABS: ALBUMIN 3.4 g/dl (3.5-5.0); ALK PHOS 89 U/L (32-92); ANION GAP 8 (8-16); BLOOD UREA NITROGEN 50 mg/dl (7-18); CALCIUM 8.8 mg/dl (8.4-10.2); CHLORIDE 96 mmol/L (98-107); CO2 32 mmol/L (22-28); CREATININE 1.9 mg/dl (0.6-1.3); GLUCOSE,RANDOM 182 mg/dl (74-106); MAGNESIUM 2.1 mg/dL (1.8-2.4); PHOSPHOROUS 4.5 mg/dl (2.5-4.6); POTASSIUM 3.5 mmol/L (3.5-5.1); SGOT/AST 35 U/L (10-42); SGPT/ALT 43 U/L (10-40); SODIUM 136 mmol/L (136-145); TOT PROT 6.7 g/dl (6.4-8.3)
[2017-04-29] MEDS ORDERED: PT OWN MED DRAWER 7, Y5N ONE ×2 (10:17→22:07)
[2017-04-29] MEDS: amLODIPine BESYLATE 5 MG TABLET (FP) PO SCH (10:22)
[2017-04-29] MEDS: LISINOPRIL 20 MG TABLET (FP) PO SCH (10:22)
[2017-04-29] MEDS: CARVEDILOL 12.5 MG TABLET (FP) PO SCH (10:22)
[2017-04-29] MEDS: BUDESONIDE/FORMETEROL FUMARATE 80/4.5 mcg INHALER IH SCH ×2 (10:22→22:09)
[2017-04-29] MEDS: hydrALAZINE HCL 10 MG TABLET PO SCH ×2 (10:22→22:09)
[2017-04-29] MEDS: CLOPIDOGREL BISULFATE 75 MG TABLET (FP) PO SCH (10:22)
[2017-04-29] MEDS: ASPIRIN COATED 81 MG TABLET.EC PO SCH (10:22)
[2017-04-29] MEDS: EZETIMIBE 10 MG TABLET (FP) PO SCH (10:22)
[2017-04-29] MEDS: predniSONE 20 MG TABLET (UD) PO SCH (10:23)
[2017-04-29] MEDS ORDERED: POTASSIUM CHLORIDE TABS 10 MEQ TABLET.ER (FP) PO ONE (11:15)
--- NOTE | 2017-04-29 14:04 | PN ---
Progress Note, Physician History of Present Illness: Pt seen and examined at bedside. He is awake and alert. He feels that his breathing has improved today. - Current Medication List Current Medications: Active Medications Albuterol Sulfate (Ventolin 0.083% Nebulizer Soln -) 1 amp NEB Q4H PRN PRN Reason: SHORT OF BREATH/WHEEZING Last Admin: 04/29/17 05:54 Dose: 1 amp Albuterol/Ipratropium (Duoneb -) 1 amp NEB RTID [facility] Last Admin: 04/29/17 08:40 Dose: 1 amp Amlodipine Besylate (Norvasc -) 5 mg PO DAILY [facility] Last Admin: 04/29/17 10:22 Dose: 5 mg Aspirin (Ecotrin -) 81 mg PO DAILY [facility] Last Admin: 04/29/17 10:22 Dose: 81 mg Atorvastatin Calcium (Lipitor -) 40 mg PO HS [facility] Last Admin: 04/28/17 21:36 Dose: 40 mg Budesonide/Formoterol Fumarate (Symbicort 80/4.5mcg -) 2 puff IH BID [facility] Last Admin: 04/29/17 10:22 Dose: 2 inh Carvedilol (Coreg -) 12.5 mg PO DAILY [facility] Last Admin: 04/29/17 10:22 Dose: 12.5 mg Clopidogrel Bisulfate (Plavix -) 75 mg PO DAILY [facility] Last Admin: 04/29/17 10:22 Dose: 75 mg Ezetimibe (Zetia -) 10 mg PO DAILY [facility] Last Admin: 04/29/17 10:22 Dose: 10 mg Furosemide (Lasix Injection -) 80 mg IVPUSH DAILY [facility] Gabapentin (Neurontin -) 600 mg PO TID [facility] Last Admin: 04/29/17 05:54 Dose: 600 mg Heparin Sodium (Porcine) (Heparin -) 5,000 unit SQ TID [facility] Last Admin: 04/29/17 05:53 Dose: 5,000 unit Hydralazine HCl (Apresoline -) 10 mg PO BID [facility] Last Admin: 04/29/17 10:22 Dose: 10 mg Insulin Aspart (Novolog Vial Sliding Scale -) 1 vial SQ ACHS [facility] PRN Reason: Protocol Last Admin: 04/29/17 10:42 Dose: Not Given Lactic Acid (Lac-Hydrin 12) 1 applic TP BID PRN PRN Reason: DRY SKIN Lisinopril (Prinivil) 20 mg PO DAILY [facility] Last Admin: 04/29/17 10:22 Dose: 20 mg Prednisone (Deltasone -) 40 mg PO DAILY [facility] Stop: 05/01/17 10:01 Last Admin: 04/29/17 10:23 Dose: 40 mg - Objective Vital Signs: Vital Signs Temperature 98.5 F 04/29/17 09:00 Pulse Rate 58 L 04/29/17 09:00 Respiratory Rate 20 04/29/17 09:00 Blood Pressure 138/67 04/29/17 09:00 O2 Sat by Pulse Oximetry (%) 95 04/29/17 05:48 Constitutional: Yes: Calm Eyes: Yes: Conjunctiva Clear HENT: Yes: Atraumatic Neck: Yes: Supple Cardiovascular: Yes: S1, S2 Respiratory: Yes: CTA Bilaterally Gastrointestinal: Yes: Soft, Abdomen, Obese Genitourinary: Yes: WNL Musculoskeletal: Yes: WNL Edema: Yes Edema: LLE: 1+, RLE: 1+ Neurological: Yes: Oriented Psychiatric: Yes: Oriented Labs: CBC, BMP 04/29/17 08:00 04/29/17 08:00 INR, PTT INR 1.10 (0.82-1.09) 04/25/17 16:40 Problem List - Problems (1) CKD (chronic kidney disease) Code(s): N18.9 - CHRONIC KIDNEY DISEASE, UNSPECIFIED (2) CAD (coronary artery disease) Code(s): I25.10 - ATHSCL HEART DISEASE OF [place] CORONARY ARTERY W/O ANG PCTRS (3) CHF exacerbation Code(s): I50.9 - HEART FAILURE, UNSPECIFIED (4) COPD exacerbation Code(s): J44.1 - CHRONIC OBSTRUCTIVE PULMONARY DISEASE W (ACUTE) EXACERBATION (5) CVA (cerebral vascular accident) Code(s): I63.9 - CEREBRAL INFARCTION, UNSPECIFIED (6) Diabetes mellitus Code(s): E11.9 - TYPE 2 DIABETES MELLITUS WITHOUT COMPLICATIONS Assessment/Plan Current Medications Generic Name Dose Route Start Last Admin Trade Name Freq PRN Reason Stop Dose Admin Albuterol Sulfate 1 amp 04/26/17 16:32 04/29/17 05:54 Ventolin 0.083% Nebulizer Soln - NEB 1 amp Q4H PRN Administration SHORT OF BREATH/WHEEZING Albuterol/Ipratropium 1 amp 03/17/18 20:00 04/29/17 08:40 Duoneb - NEB 1 amp RTID [facility] Administration Amlodipine Besylate 5 mg 04/26/17 10:00 04/29/17 10:22 Norvasc - PO 5 mg DAILY [facility] Administration Aspirin 81 mg 04/26/17 10:00 04/29/17 10:22 Ecotrin - PO 81 mg DAILY [facility] Administration Atorvastatin Calcium 40 mg 04/25/17 22:00 04/28/17 21:36 Lipitor - PO 40 mg HS [facility] Administration Budesonide/Formoterol Fumarate 2 puff 04/28/17 13:45 04/29/17 10:22 Symbicort 80/4.5mcg - IH 2 inh BID [facility] Administration Carvedilol 12.5 mg 04/26/17 10:00 04/29/17 10:22 Coreg - PO 12.5 mg DAILY [facility] Administration Clopidogrel Bisulfate 75 mg 04/26/17 10:00 04/29/17 10:22 Plavix - PO 75 mg DAILY [facility] Administration Ezetimibe 10 mg 04/26/17 10:00 04/29/17 10:22 Zetia - PO 10 mg DAILY [facility] Administration Furosemide 80 mg 04/30/17 10:00 Lasix Injection - IVPUSH DAILY [facility] Gabapentin 600 mg 04/25/17 22:00 04/29/17 05:54 Neurontin - PO 600 mg TID [facility] Administration Heparin Sodium (Porcine) 5,000 unit 04/28/17 08:02 04/29/17 05:53 Heparin - SQ 5,000 unit TID [facility] Administration Hydralazine HCl 10 mg 04/28/17 22:00 04/29/17 10:22 Apresoline - PO 10 mg BID [facility] Administration Insulin Aspart 1 vial 04/26/17 11:00 04/29/17 10:42 Novolog Vial Sliding Scale - SQ Not Given ACHS [facility] Protocol Lactic Acid 1 applic 04/27/17 12:01 Lac-Hydrin 12 TP BID PRN DRY SKIN Lisinopril 20 mg 04/26/17 10:00 04/29/17 10:22 Prinivil PO 20 mg DAILY [facility] Administration Prednisone 40 mg 04/27/17 10:00 04/29/17 10:23 Deltasone - PO 05/01/17 10:01 40 mg DAILY [facility] Administration Laboratory Tests 04/28/17 04/29/17 08:00 00:00 Protein/Creatinin Ratio 0.37 CASTRO Screen Pending c-ANCA Pending Proteinase 3 (PR3) Pending p-ANCA Pending Atypical p-ANCA Pending Myeloperoxidase Ab Pending Impression 1. CKD 2. CHF 3. obesity 4. hx CVA 5. CAD 6. HTN 7. DM 8. MARLINE 9. PAD 10. COPD Plan - renal workup is in progress - recommend decreasing dose of lasix. 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
--- NOTE | 2017-04-29 17:11 | PN ---
Physical Exam: SUBJECTIVE: Patient seen and examined. Reports improvement in breathing. OBJECTIVE: Vital Signs - 24 hr 3 04/28/17 04/29/17 04/29/17 22:00 05:48 09:00 Temperature 97.6 F 97.6 F 98.5 F Pulse Rate 56 L 62 58 L Respiratory 17 18 20 Rate Blood Pressure 140/66 138/60 138/67 O2 Sat by Pulse 100 95 Oximetry (%) 3 04/29/17 14:00 Temperature 98.4 F Pulse Rate 56 L Respiratory 20 Rate Blood Pressure 125/75 O2 Sat by Pulse 96 Oximetry (%) GENERAL: The patient is awake, alert, and fully oriented, in no acute distress. HEAD: Normal with no signs of trauma. EYES: PERRL, extraocular movements intact, sclera anicteric, conjunctiva clear. No ptosis. ENT: Ears normal, nares patent, oropharynx clear without exudates, moist mucous membranes. NECK: Trachea midline, full range of motion, supple. LUNGS: Breath sounds equal, no wheezes, + crackles bilat bases, no accessory muscle use. HEART: Regular rate and rhythm, S1, S2 without murmur, rub or gallop. ABDOMEN: Soft, nontender, nondistended, normoactive bowel sounds, no guarding, no rebound, no hepatosplenomegaly, no masses. EXTREMITIES: 2+ pulses, warm, well-perfused, + B/L pedal edema NEUROLOGICAL: Cranial nerves II through XII grossly intact. Normal speech, gait not observed. PSYCH: Normal mood, normal affect. SKIN: Warm, dry, normal turgor, no rashes or lesions noted Laboratory Results - last 24 hr 3 04/28/17 04/28/17 04/29/17 16:54 21:33 00:00 WBC RBC Hgb Hct MCV MCH MCHC RDW Plt Count MPV Neutrophils % Neutrophils % (Manual) Band Neutrophils % Lymphocytes % Lymphocytes % (Manual) Monocytes % (Manual) Metamyelocytes Sodium Potassium Chloride Carbon Dioxide Anion Gap BUN Creatinine Creat Clearance w eGFR POC Glucometer 261 217 Random Glucose Calcium Phosphorus Magnesium Total Bilirubin AST ALT Alkaline Phosphatase Total Protein Albumin U Random Total Protein 15 H Urine Creatinine 40.1 Protein/Creatinin Ratio 0.37 3 04/29/17 04/29/17 04/29/17 05:52 08:00 08:00 WBC 9.9 RBC 5.14 Hgb 15.1 Hct 46.1 MCV 89.7 MCH 29.3 MCHC 32.7 RDW 15.9 Plt Count 124 L MPV 9.4 Neutrophils % No Result Required. Neutrophils % (Manual) 80.0 Band Neutrophils % 4.0 Lymphocytes % No Result Required. Lymphocytes % (Manual) 8.0 D Monocytes % (Manual) 5 Metamyelocytes 3 H Sodium 136 Potassium 3.5 Chloride 96 L Carbon Dioxide 32 H Anion Gap 8 BUN 50 H Creatinine 1.9 H Creat Clearance w eGFR 35.54 POC Glucometer 167 Random Glucose 182 H Calcium 8.8 Phosphorus 4.5 Magnesium 2.1 Total Bilirubin 1.0 D AST 35 ALT 43 H D Alkaline Phosphatase 89 D Total Protein 6.7 Albumin 3.4 L U Random Total Protein Urine Creatinine Protein/Creatinin Ratio Active Medications 3 Generic Name Dose Route Start Last Admin Trade Name Freq PRN Reason Stop Dose Admin Albuterol Sulfate 1 amp 04/26/17 16:32 04/29/17 05:54 Ventolin 0.083% Nebulizer Soln - NEB 1 amp Q4H PRN Administration SHORT OF BREATH/WHEEZING Albuterol/Ipratropium 1 amp 04/26/17 20:00 04/29/17 14:39 Duoneb - NEB Not Given RTID [facility] Amlodipine Besylate 5 mg 04/26/17 10:00 04/29/17 10:22 Norvasc - PO 5 mg DAILY [facility] Administration Aspirin 81 mg 04/26/17 10:00 04/29/17 10:22 Ecotrin - PO 81 mg DAILY [facility] Administration Atorvastatin Calcium 40 mg 04/25/17 22:00 04/28/17 21:36 Lipitor - PO 40 mg HS [facility] Administration Budesonide/Formoterol Fumarate 2 puff 04/28/17 13:45 04/29/17 10:22 Symbicort 80/4.5mcg - IH 2 inh BID [facility] Administration Carvedilol 12.5 mg 04/26/17 10:00 04/29/17 10:22 Coreg - PO 12.5 mg DAILY [facility] Administration Clopidogrel Bisulfate 75 mg 04/26/17 10:00 04/29/17 10:22 Plavix - PO 75 mg DAILY [facility] Administration Ezetimibe 10 mg 04/26/17 10:00 04/29/17 10:22 Zetia - PO 10 mg DAILY [facility] Administration Furosemide 60 mg 04/30/17 10:00 Lasix Injection - IVPUSH DAILY [facility] Gabapentin 600 mg 04/25/17 22:00 04/29/17 14:39 Neurontin - PO 600 mg TID [facility] Administration Heparin Sodium (Porcine) 5,000 unit 04/28/17 08:02 04/29/17 14:39 Heparin - SQ 5,000 unit TID [facility] Administration Hydralazine HCl 10 mg 04/28/17 22:00 04/29/17 10:22 Apresoline - PO 10 mg BID [facility] Administration Insulin Aspart 1 vial 04/26/17 11:00 04/29/17 10:42 Novolog Vial Sliding Scale - SQ Not Given ACHS [facility] Protocol Lactic Acid 1 applic 04/27/17 12:01 Lac-Hydrin 12 TP BID PRN DRY SKIN Lisinopril 20 mg 04/26/17 10:00 04/29/17 10:22 Prinivil PO 20 mg DAILY [facility] Administration Prednisone 40 mg 04/27/17 10:00 04/29/17 10:23 Deltasone - PO 05/01/17 10:01 40 mg DAILY [facility] Administration ASSESSMENT/PLAN: 66yM with PMH CVA, CHF, HTN, HLD, PAD, COPD, MARLINE, DM presented to the ED on 04/25 with SOB, ANTONY, fatigue. CHF exacerbation - lasix decreased to daily after discussion with renal - total 4kg weight loss - cont daily weights - strict I&O HTN - cont home lisinopril, coreg, norvasc. hydralazine added to regimen chronic venous insufficiency - cont TURNER wrap - elevate legs HLD - cont statin, zetia CVA - cont asa, statin COPD - no wheezing at present. - cont symbicort and duonebs - taper prednisone as per pulm MARLINE - doesn't utilize cpap at home, to f/u with home transportation attendant DVT PPX - cont heparin 5000u TID FEN - tolerating po fluids - BMP in am - low sodium diet as tolerated Dispo: pt continues to require inpatient management of his emergent conditions. Visit type - Emergency Visit Emergency Visit: Yes ED Registration Date: 04/26/17 Care time: The patient presented to the Emergency Department on the above date and was hospitalized for further evaluation of their emergent condition. - New Patient This patient is new to me today: Yes Date on this admission: 04/29/17 - Critical Care Critical Care patient: No
[2017-04-29 18:28] LABS: PLATELET ESTIMATE SLT DECREASE
[2017-04-29] MEDS: ATORVASTATIN CA 40 MG TABLET (FP) PO SCH (22:09)
[2017-04-30] MEDS: GABAPENTIN 300 MG CAPSULE (FP) PO SCH ×3 (06:13→21:23)
[2017-04-30] MEDS: HEPARIN NA (PORCINE) 5,000 UNITS/ML 1ML VIAL SQ SCH ×3 (06:14→21:23)
[2017-04-30] MEDS: INSULIN SLIDING SCALE (NOVOLOG) 1 VIAL SQ SCH ×4 (06:59→21:32)
[2017-04-30] MEDS: ALBUTEROL SO4 2.5/IPRATROPIUM 0.5 INH SOL 3 ML VIAL.NEB. NEB SCH ×3 (08:45→19:41)
[2017-04-30 08:57] LABS: BASO % 0.3 % (0-2.0); EOS % 0.1 % (0-4.5); HEMATOCRIT 46.5 % (35.4-49); HEMOGLOBIN 15.7 GM/dl (11.7-16.9); LYMPH % 9.8 % (8-40); MCH 30.4 pg (25.7-33.7); MCHC 33.8 g/dl (32.0-35.9); MEAN CELL VOLUME 89.9 fl (80-96); MEAN PLT VOLUME 9.1 fl (7.5-11.1); MONO % 5.5 % (3.8-10.2); NEUT % 84.3 % (42.8-82.8); PLATELET COUNT 132 K/MM3 (134-434); RBC 5.18 M/mm3 (4.00-5.60); RDW 15.5 % (11.9-15.9); WHITE BLOOD COUNT 8.4 K/mm3 (4.0-10.8)
[2017-04-30 09:05] LABS: ANION GAP 5 (8-16); BLOOD UREA NITROGEN 49 mg/dl (7-18); CHLORIDE 99 mmol/L (98-107); CO2 32 mmol/L (22-28); CREATININE 1.8 mg/dl (0.6-1.3); GLUCOSE,RANDOM 139 mg/dl (74-106); POTASSIUM 3.8 mmol/L (3.5-5.1); SODIUM 136 mmol/L (136-145)
[2017-04-30] MEDS ORDERED: FUROSEMIDE 40 MG/4 ML INJECTABLE VIAL IVPUSH SCH (10:00)
[2017-04-30] MEDS ORDERED: PT OWN MED DRAWER 7, Y5N ONE ×2 (10:49→22:14)
[2017-04-30] MEDS: amLODIPine BESYLATE 5 MG TABLET (FP) PO SCH (10:52)
[2017-04-30] MEDS: ASPIRIN COATED 81 MG TABLET.EC PO SCH (10:53)
[2017-04-30] MEDS: FUROSEMIDE 40 MG/4 ML INJECTABLE VIAL IVPUSH SCH (10:53)
[2017-04-30] MEDS: hydrALAZINE HCL 10 MG TABLET PO SCH ×2 (10:53→21:23)
[2017-04-30] MEDS: CARVEDILOL 12.5 MG TABLET (FP) PO SCH (10:53)
[2017-04-30] MEDS: EZETIMIBE 10 MG TABLET (FP) PO SCH (10:53)
[2017-04-30] MEDS: CLOPIDOGREL BISULFATE 75 MG TABLET (FP) PO SCH (10:54)
[2017-04-30] MEDS: predniSONE 20 MG TABLET (UD) PO SCH (10:54)
[2017-04-30] MEDS: LISINOPRIL 20 MG TABLET (FP) PO SCH (10:55)
[2017-04-30] MEDS: BUDESONIDE/FORMETEROL FUMARATE 80/4.5 mcg INHALER IH SCH ×2 (10:55→21:31)
--- NOTE | 2017-04-30 11:50 | PN ---
Progress Note, Physician History of Present Illness: Pt seen and examined at bedside. He is awake and alert. He denies shortness of breath and has been able to ambulate. - Current Medication List Current Medications: Active Medications Albuterol Sulfate (Ventolin 0.083% Nebulizer Soln -) 1 amp NEB Q4H PRN PRN Reason: SHORT OF BREATH/WHEEZING Last Admin: 04/29/17 05:54 Dose: 1 amp Albuterol/Ipratropium (Duoneb -) 1 amp NEB RTID [facility] Last Admin: 04/29/17 22:08 Dose: 1 amp Amlodipine Besylate (Norvasc -) 5 mg PO DAILY [facility] Last Admin: 04/30/17 10:52 Dose: 5 mg Aspirin (Ecotrin -) 81 mg PO DAILY [facility] Last Admin: 04/30/17 10:53 Dose: 81 mg Atorvastatin Calcium (Lipitor -) 40 mg PO HS [facility] Last Admin: 04/29/17 22:09 Dose: 40 mg Budesonide/Formoterol Fumarate (Symbicort 80/4.5mcg -) 2 puff IH BID [facility] Last Admin: 04/30/17 10:55 Dose: 2 inh Carvedilol (Coreg -) 12.5 mg PO DAILY [facility] Last Admin: 04/30/17 10:53 Dose: 12.5 mg Clopidogrel Bisulfate (Plavix -) 75 mg PO DAILY [facility] Last Admin: 04/30/17 10:54 Dose: 75 mg Ezetimibe (Zetia -) 10 mg PO DAILY [facility] Last Admin: 04/30/17 10:53 Dose: 10 mg Furosemide (Lasix Injection -) 60 mg IVPUSH DAILY [facility] Last Admin: 04/30/17 10:53 Dose: 60 mg Gabapentin (Neurontin -) 600 mg PO TID [facility] Last Admin: 04/30/17 06:13 Dose: 600 mg Heparin Sodium (Porcine) (Heparin -) 5,000 unit SQ TID [facility] Last Admin: 04/30/17 06:14 Dose: 5,000 unit Hydralazine HCl (Apresoline -) 10 mg PO BID [facility] Last Admin: 04/30/17 10:53 Dose: 10 mg Insulin Aspart (Novolog Vial Sliding Scale -) 1 vial SQ ACHS [facility] PRN Reason: Protocol Last Admin: 04/30/17 06:59 Dose: 2 units Lactic Acid (Lac-Hydrin 12) 1 applic TP BID PRN PRN Reason: DRY SKIN Lisinopril (Prinivil) 20 mg PO DAILY [facility] Last Admin: 04/30/17 10:55 Dose: 20 mg Prednisone (Deltasone -) 40 mg PO DAILY [facility] Stop: 05/01/17 10:01 Last Admin: 04/30/17 10:54 Dose: 40 mg - Objective Vital Signs: Vital Signs Temperature 97.5 F L 04/30/17 06:00 Pulse Rate 67 04/30/17 06:00 Respiratory Rate 19 04/30/17 06:00 Blood Pressure 149/66 04/30/17 06:00 O2 Sat by Pulse Oximetry (%) 95 04/30/17 06:34 Constitutional: Yes: Calm Eyes: Yes: Conjunctiva Clear HENT: Yes: Atraumatic Neck: Yes: Supple Cardiovascular: Yes: S1, S2 Respiratory: Yes: CTA Bilaterally Gastrointestinal: Yes: Normal Bowel Sounds, Soft Genitourinary: Yes: WNL Musculoskeletal: Yes: WNL Edema: Yes Edema: LLE: 1+, RLE: 1+ Integumentary: Yes: Venous Stasis Changes Neurological: Yes: Oriented Psychiatric: Yes: Oriented Labs: CBC, BMP 04/30/17 07:50 04/30/17 07:50 INR, PTT INR 1.10 (0.82-1.09) 04/25/17 16:40 Problem List - Problems (1) CKD (chronic kidney disease) Code(s): N18.9 - CHRONIC KIDNEY DISEASE, UNSPECIFIED (2) CAD (coronary artery disease) Code(s): I25.10 - ATHSCL HEART DISEASE OF [place] CORONARY ARTERY W/O ANG PCTRS (3) CHF exacerbation Code(s): I50.9 - HEART FAILURE, UNSPECIFIED (4) COPD exacerbation Code(s): J44.1 - CHRONIC OBSTRUCTIVE PULMONARY DISEASE W (ACUTE) EXACERBATION (5) CVA (cerebral vascular accident) Code(s): I63.9 - CEREBRAL INFARCTION, UNSPECIFIED (6) Diabetes mellitus Code(s): E11.9 - TYPE 2 DIABETES MELLITUS WITHOUT COMPLICATIONS Assessment/Plan Current Medications Generic Name Dose Route Start Last Admin Trade Name Freq PRN Reason Stop Dose Admin Albuterol Sulfate 1 amp 04/26/17 16:32 04/29/17 05:54 Ventolin 0.083% Nebulizer Soln - NEB 1 amp Q4H PRN Administration SHORT OF BREATH/WHEEZING Albuterol/Ipratropium 1 amp 04/26/17 20:00 04/29/17 22:08 Duoneb - NEB 1 amp RTID [facility] Administration Amlodipine Besylate 5 mg 04/26/17 10:00 04/30/17 10:52 Norvasc - PO 5 mg DAILY [facility] Administration Aspirin 81 mg 04/26/17 10:00 04/30/17 10:53 Ecotrin - PO 81 mg DAILY [facility] Administration Atorvastatin Calcium 40 mg 04/25/17 22:00 04/29/17 22:09 Lipitor - PO 40 mg HS [facility] Administration Budesonide/Formoterol Fumarate 2 puff 04/28/17 13:45 04/30/17 10:55 Symbicort 80/4.5mcg - IH 2 inh BID [facility] Administration Carvedilol 12.5 mg 04/26/17 10:00 04/30/17 10:53 Coreg - PO 12.5 mg DAILY [facility] Administration Clopidogrel Bisulfate 75 mg 04/26/17 10:00 04/30/17 10:54 Plavix - PO 75 mg DAILY [facility] Administration Ezetimibe 10 mg 04/26/17 10:00 04/30/17 10:53 Zetia - PO 10 mg DAILY [facility] Administration Furosemide 60 mg 04/30/17 10:00 04/30/17 10:53 Lasix Injection - IVPUSH 60 mg DAILY [facility] Administration Gabapentin 600 mg 04/25/17 22:00 04/30/17 06:13 Neurontin - PO 600 mg TID [facility] Administration Heparin Sodium (Porcine) 5,000 unit 04/28/17 08:02 04/30/17 06:14 Heparin - SQ 5,000 unit TID [facility] Administration Hydralazine HCl 10 mg 04/28/17 22:00 04/30/17 10:53 Apresoline - PO 10 mg BID [facility] Administration Insulin Aspart 1 vial 04/26/17 11:00 04/30/17 06:59 Novolog Vial Sliding Scale - SQ 2 units ACHS [facility] Administration Protocol Lactic Acid 1 applic 04/27/17 12:01 Lac-Hydrin 12 TP BID PRN DRY SKIN Lisinopril 20 mg 04/26/17 10:00 04/30/17 10:55 Prinivil PO 20 mg DAILY [facility] Administration Prednisone 40 mg 04/27/17 10:00 04/30/17 10:54 Deltasone - PO 05/01/17 10:01 40 mg DAILY [facility] Administration Laboratory Tests 04/28/17 08:00 CASTRO Screen Pending c-ANCA Pending Proteinase 3 (PR3) Pending p-ANCA Pending Atypical p-ANCA Pending Myeloperoxidase Ab Pending Impression 1. CKD 2. CHF 3. obesity 4. hx CVA 5. CAD 6. HTN 7. DM 8. MARLINE 9. PAD 10. COPD Plan - creatinine is improved - switch lasix to 40 mg po daily for tomorrow - cont current meds - renal workup is in progress however he will need outpt follow up - pt is now off of oxygen - recommend weight loss - discussed 2 gram sodium diet - cont richard - will follow Dr Calvin
--- NOTE | 2017-04-30 11:50 | PN ---
Progress Note (short form) - Note Progress Note: PULMONARY SITTING IN RECLINER SUBJECTIVE IMPROVEMENT VSS ANICTERIC BIBASILAR CRACKLES S1S2 BS+ OBESE BILATERAL LOWER EXT TURNER BANDAGES LABS/MEDS/NOTES/IMAGES REVIEWED (1) Acute bronchitis Code(s): J20.9 - ACUTE BRONCHITIS, UNSPECIFIED (2) CAD (coronary artery disease) Code(s): I25.10 - ATHSCL HEART DISEASE OF [place] CORONARY ARTERY W/O ANG PCTRS (3) CHF exacerbation Code(s): I50.9 - HEART FAILURE, UNSPECIFIED (4) COPD exacerbation Code(s): J44.1 - CHRONIC OBSTRUCTIVE PULMONARY DISEASE W (ACUTE) EXACERBATION (5) CVA (cerebral vascular accident) Code(s): I63.9 - CEREBRAL INFARCTION, UNSPECIFIED (6) Diabetes mellitus Code(s): E11.9 - TYPE 2 DIABETES MELLITUS WITHOUT COMPLICATIONS (7) HLD (hyperlipidemia) Code(s): E78.5 - HYPERLIPIDEMIA, UNSPECIFIED (8) HTN (hypertension) Code(s): I10 - ESSENTIAL (PRIMARY) HYPERTENSION (9) MARLINE (obstructive sleep apnea) Code(s): G47.33 - OBSTRUCTIVE SLEEP APNEA (ADULT) (PEDIATRIC) (10) PAD (peripheral artery disease) Code(s): I73.9 - PERIPHERAL VASCULAR DISEASE, UNSPECIFIED Assessment/Plan Suspect combination of AE of COPD and Decompensated CHF Renal insufficiency /Renal consult reviewed steroids to taper/o2/bronchodilators Lasix BID Will need outpatient f/u of 5 mm rml pulmonary nodule Patient reports that Dr Harrell's office is in the process of optimizing his OSAS treatment and apparently a new device is being ordered No objection to continuing treatment as an outpatient Shell QUINONEZ MD
--- NOTE | 2017-04-30 13:00 | PN ---
Physical Exam: SUBJECTIVE: Patient seen and examined, reports feeling much improved, denies any chest pain or shortness of breath. OBJECTIVE:66 year-old male with a PMH significant for HTN, HLD, CHF, chronic venous insufficiency, COPD, MARLINE, NIDDM. Admitted for CHF exacerbation Vital Signs Period Temp Pulse Resp BP Sys/Ni Pulse Ox Last 24 Hr 97.5 F-98.4 F 56-67 19-20 125-149/66-75 95-96 GENERAL: The patient is awake, alert, and fully oriented, in no acute distress. HEAD: Normal with no signs of trauma. EYES: PERRL, extraocular movements intact, sclera anicteric, conjunctiva clear. No ptosis. ENT: Ears normal, nares patent, oropharynx clear without exudates, moist mucous membranes. NECK: Trachea midline, full range of motion, supple. LUNGS: Breath sounds equal, clear to auscultation bilaterally and diminished to bases, no wheezes, no crackles, no accessory muscle use. HEART: Regular rate and rhythm, S1, S2 without murmur, rub or gallop. ABDOMEN: Soft, nontender, nondistended, normoactive bowel sounds, no guarding, no rebound, no hepatosplenomegaly, no masses. EXTREMITIES: 2+ pulses, warm, well-perfused, + 2 lower extremity edema, with venous stasis changes. NEUROLOGICAL: Cranial nerves II through XII grossly intact. Normal speech, gait not observed. PSYCH: Normal mood, normal affect. SKIN: Warm, dry, normal turgor, no rashes or lesions noted Laboratory Results - last 24 hr 04/29/17 04/29/17 04/29/17 08:00 16:50 22:11 WBC RBC Hgb Hct MCV MCH MCHC RDW Plt Count MPV Neutrophils % Lymphocytes % Monocytes % Eosinophils % Basophils % Platelet Estimate Slt decrease Sodium Potassium Chloride Carbon Dioxide Anion Gap BUN Creatinine POC Glucometer 229 215 Random Glucose Calcium 04/30/17 04/30/17 04/30/17 06:12 07:50 07:50 WBC 8.4 RBC 5.18 Hgb 15.7 Hct 46.5 MCV 89.9 MCH 30.4 MCHC 33.8 RDW 15.5 Plt Count 132 L MPV 9.1 Neutrophils % 84.3 H Lymphocytes % 9.8 Monocytes % 5.5 Eosinophils % 0.1 Basophils % 0.3 Platelet Estimate Sodium 136 Potassium 3.8 Chloride 99 Carbon Dioxide 32 H Anion Gap 5 L BUN 49 H Creatinine 1.8 H POC Glucometer 153 Random Glucose 139 H D Calcium 9.0 Active Medications Generic Name Dose Route Start Last Admin Trade Name Freq PRN Reason Stop Dose Admin Albuterol Sulfate 1 amp 04/26/17 16:32 04/29/17 05:54 Ventolin 0.083% Nebulizer Soln - NEB 1 amp Q4H PRN Administration SHORT OF BREATH/WHEEZING Albuterol/Ipratropium 1 amp 04/26/17 20:00 04/29/17 22:08 Duoneb - NEB 1 amp RTID [facility] Administration Amlodipine Besylate 5 mg 04/26/17 10:00 04/30/17 10:52 Norvasc - PO 5 mg DAILY [facility] Administration Aspirin 81 mg 04/26/17 10:00 04/30/17 10:53 Ecotrin - PO 81 mg DAILY [facility] Administration Atorvastatin Calcium 40 mg 04/25/17 22:00 04/29/17 22:09 Lipitor - PO 40 mg HS [facility] Administration Budesonide/Formoterol Fumarate 2 puff 04/28/17 13:45 04/30/17 10:55 Symbicort 80/4.5mcg - IH 2 inh BID [facility] Administration Carvedilol 12.5 mg 04/26/17 10:00 04/30/17 10:53 Coreg - PO 12.5 mg DAILY [facility] Administration Clopidogrel Bisulfate 75 mg 04/26/17 10:00 04/30/17 10:54 Plavix - PO 75 mg DAILY [facility] Administration Ezetimibe 10 mg 04/26/17 10:00 04/30/17 10:53 Zetia - PO 10 mg DAILY [facility] Administration Furosemide 60 mg 04/30/17 10:00 04/30/17 10:53 Lasix Injection - IVPUSH 60 mg DAILY [facility] Administration Gabapentin 600 mg 04/25/17 22:00 04/30/17 06:13 Neurontin - PO 600 mg TID [facility] Administration Heparin Sodium (Porcine) 5,000 unit 04/28/17 08:02 04/30/17 06:14 Heparin - SQ 5,000 unit TID [facility] Administration Hydralazine HCl 10 mg 04/28/17 22:00 04/30/17 10:53 Apresoline - PO 10 mg BID [facility] Administration Insulin Aspart 1 vial 04/26/17 11:00 04/30/17 06:59 Novolog Vial Sliding Scale - SQ 2 units ACHS [facility] Administration Protocol Lactic Acid 1 applic 04/27/17 12:01 Lac-Hydrin 12 TP BID PRN DRY SKIN Lisinopril 20 mg 04/26/17 10:00 04/30/17 10:55 Prinivil PO 20 mg DAILY [facility] Administration Prednisone 40 mg 04/27/17 10:00 04/30/17 10:54 Deltasone - PO 05/01/17 10:01 40 mg DAILY [facility] Administration ASSESSMENT/PLAN: 1) cardiovascular acute on chronic systolic CHF exacerbation - contiinue lasix 60mg ivp, 4kg weight loss noted - cardiology, Dr Gill, consulted and following HTN - cont home lisinopril, coreg, norvasc. with hydralazine recently added, b/p at goal chronic venous insufficiency - cont TURNER wrap and elevate legs HLD - cont statin, zetia CVA - cont asa, statin 2) pulm COPD - cont symbicort and duonebs - prednisione tapered to 40mg qd MARLINE - doesn't utilize cpap at home, to f/u with home lokie driver DVT PPX - cont heparin 5000u TID FEN - tolerating po fluids - BMP in am - low sodium diet as tolerated Dispo: pt continues to require inpatient management of his emergent conditions. Visit type - Emergency Visit Emergency Visit: Yes ED Registration Date: 04/26/17 Care time: The patient presented to the Emergency Department on the above date and was hospitalized for further evaluation of their emergent condition. - New Patient This patient is new to me today: No - Critical Care Critical Care patient: No - Discharge Referral Referred to [facility] Med P.C.: No
[2017-04-30] MEDS: ATORVASTATIN CA 40 MG TABLET (FP) PO SCH (21:23)
[2017-05-01] MEDS: HEPARIN NA (PORCINE) 5,000 UNITS/ML 1ML VIAL SQ SCH (05:41)
[2017-05-01] MEDS: GABAPENTIN 300 MG CAPSULE (FP) PO SCH (05:41)
[2017-05-01 06:46] VITALS: BP 172/87; PULSE 65; TEMP 97.3
[2017-05-01] MEDS: INSULIN SLIDING SCALE (NOVOLOG) 1 VIAL SQ SCH (07:14)
[2017-05-01 08:53] LABS: BASO % 0.3 % (0-2.0); EOS % 0.1 % (0-4.5); HEMATOCRIT 45.9 % (35.4-49); HEMOGLOBIN 15.8 GM/dl (11.7-16.9); LYMPH % 10.2 % (8-40); MCH 30.8 pg (25.7-33.7); MCHC 34.4 g/dl (32.0-35.9); MEAN CELL VOLUME 89.6 fl (80-96); MEAN PLT VOLUME 9.2 fl (7.5-11.1); MONO % 5.8 % (3.8-10.2); NEUT % 83.6 % (42.8-82.8); PLATELET COUNT 141 K/MM3 (134-434); RBC 5.13 M/mm3 (4.00-5.60); RDW 15.5 % (11.9-15.9); WHITE BLOOD COUNT 8.8 K/mm3 (4.0-10.8)
[2017-05-01 08:54] LABS: ANION GAP 8 (8-16); BLOOD UREA NITROGEN 49 mg/dl (7-18); CALCIUM 9.1 mg/dl (8.4-10.2); CHLORIDE 98 mmol/L (98-107); CO2 29 mmol/L (22-28); CREATININE 1.8 mg/dl (0.6-1.3); GLUCOSE,RANDOM 148 mg/dl (74-106); SODIUM 135 mmol/L (136-145)
[2017-05-01] MEDS: CLOPIDOGREL BISULFATE 75 MG TABLET (FP) PO SCH (10:47)
[2017-05-01] MEDS: EZETIMIBE 10 MG TABLET (FP) PO SCH (10:47)
[2017-05-01] MEDS: hydrALAZINE HCL 10 MG TABLET PO SCH (10:47)
[2017-05-01] MEDS: predniSONE 20 MG TABLET (UD) PO SCH (10:47)
[2017-05-01] MEDS: CARVEDILOL 12.5 MG TABLET (FP) PO SCH (10:48)
[2017-05-01] MEDS: amLODIPine BESYLATE 5 MG TABLET (FP) PO SCH (10:48)
[2017-05-01] MEDS: LISINOPRIL 20 MG TABLET (FP) PO SCH (10:48)
[2017-05-01] MEDS: ASPIRIN COATED 81 MG TABLET.EC PO SCH (10:48)
[2017-05-01] MEDS: ALBUTEROL SO4 2.5/IPRATROPIUM 0.5 INH SOL 3 ML VIAL.NEB. NEB SCH (10:48)
[2017-05-01] MEDS: FUROSEMIDE 40 MG/4 ML INJECTABLE VIAL IVPUSH SCH (10:49)
[2017-05-01] MEDS: BUDESONIDE/FORMETEROL FUMARATE 80/4.5 mcg INHALER IH SCH (10:49)
--- NOTE | 2017-05-01 11:19 | PN ---
Progress Note, Physician History of Present Illness: Pt seen and examined at bedside. He is awake and alert. He is eager to go home. He denies shortness of breath. He is ambulating without difficulty. He is off of oxygen. He denies dysuria or hematuria. - Current Medication List Current Medications: Active Medications Albuterol Sulfate (Ventolin 0.083% Nebulizer Soln -) 1 amp NEB Q4H PRN PRN Reason: SHORT OF BREATH/WHEEZING Last Admin: 04/29/17 05:54 Dose: 1 amp Albuterol/Ipratropium (Duoneb -) 1 amp NEB RTID [facility] Last Admin: 05/01/17 10:48 Dose: 1 amp Amlodipine Besylate (Norvasc -) 5 mg PO DAILY [facility] Last Admin: 05/01/17 10:48 Dose: 5 mg Aspirin (Ecotrin -) 81 mg PO DAILY [facility] Last Admin: 05/01/17 10:48 Dose: 81 mg Atorvastatin Calcium (Lipitor -) 40 mg PO HS [facility] Last Admin: 04/30/17 21:23 Dose: 40 mg Budesonide/Formoterol Fumarate (Symbicort 80/4.5mcg -) 2 puff IH BID [facility] Last Admin: 05/01/17 10:49 Dose: 1 inh Carvedilol (Coreg -) 12.5 mg PO DAILY [facility] Last Admin: 05/01/17 10:48 Dose: 12.5 mg Clopidogrel Bisulfate (Plavix -) 75 mg PO DAILY [facility] Last Admin: 05/01/17 10:47 Dose: 75 mg Ezetimibe (Zetia -) 10 mg PO DAILY [facility] Last Admin: 05/01/17 10:47 Dose: 10 mg Furosemide (Lasix Injection -) 60 mg IVPUSH DAILY [facility] Last Admin: 04/30/17 10:53 Dose: 60 mg Gabapentin (Neurontin -) 600 mg PO TID [facility] Last Admin: 05/01/17 05:41 Dose: 600 mg Heparin Sodium (Porcine) (Heparin -) 5,000 unit SQ TID [facility] Last Admin: 05/01/17 05:41 Dose: 5,000 unit Hydralazine HCl (Apresoline -) 10 mg PO BID [facility] Last Admin: 05/01/17 10:47 Dose: 10 mg Insulin Aspart (Novolog Vial Sliding Scale -) 1 vial SQ ACHS [facility] PRN Reason: Protocol Last Admin: 05/01/17 07:14 Dose: Not Given Lactic Acid (Lac-Hydrin 12) 1 applic TP BID PRN PRN Reason: DRY SKIN Lisinopril (Prinivil) 20 mg PO DAILY [facility] Last Admin: 05/01/17 10:48 Dose: 20 mg - Objective Vital Signs: Vital Signs Temperature 97.3 F L 05/01/17 06:00 Pulse Rate 65 05/01/17 06:00 Respiratory Rate 20 05/01/17 06:00 Blood Pressure 172/87 05/01/17 06:00 O2 Sat by Pulse Oximetry (%) 95 05/01/17 06:43 Constitutional: Yes: Calm Eyes: Yes: Conjunctiva Clear HENT: Yes: Atraumatic Cardiovascular: Yes: S1, S2 Respiratory: Yes: CTA Bilaterally Gastrointestinal: Yes: Normal Bowel Sounds, Soft, Abdomen, Obese Genitourinary: Yes: WNL Musculoskeletal: Yes: WNL Edema: No Neurological: Yes: Oriented Psychiatric: Yes: Oriented Labs: CBC, BMP 05/01/17 07:15 05/01/17 07:15 INR, PTT INR 1.10 (0.82-1.09) 04/25/17 16:40 Problem List - Problems (1) CKD (chronic kidney disease) Code(s): N18.9 - CHRONIC KIDNEY DISEASE, UNSPECIFIED (2) CAD (coronary artery disease) Code(s): I25.10 - ATHSCL HEART DISEASE OF [place] CORONARY ARTERY W/O ANG PCTRS (3) CHF exacerbation Code(s): I50.9 - HEART FAILURE, UNSPECIFIED (4) COPD exacerbation Code(s): J44.1 - CHRONIC OBSTRUCTIVE PULMONARY DISEASE W (ACUTE) EXACERBATION (5) CVA (cerebral vascular accident) Code(s): I63.9 - CEREBRAL INFARCTION, UNSPECIFIED (6) Diabetes mellitus Code(s): E11.9 - TYPE 2 DIABETES MELLITUS WITHOUT COMPLICATIONS Assessment/Plan Current Medications Generic Name Dose Route Start Last Admin Trade Name Freq PRN Reason Stop Dose Admin Albuterol Sulfate 1 amp 04/26/17 16:32 04/29/17 05:54 Ventolin 0.083% Nebulizer Soln - NEB 1 amp Q4H PRN Administration SHORT OF BREATH/WHEEZING Albuterol/Ipratropium 1 amp 04/26/17 20:00 05/01/17 10:48 Duoneb - NEB 1 amp RTID ZAKIYA Administration Amlodipine Besylate 5 mg 04/26/17 10:00 05/01/17 10:48 Norvasc - PO 5 mg DAILY ZAKIYA Administration Aspirin 81 mg 04/26/17 10:00 05/01/17 10:48 Ecotrin - PO 81 mg DAILY ZAKIYA Administration Atorvastatin Calcium 40 mg 04/25/17 22:00 04/30/17 21:23 Lipitor - PO 40 mg HS ZAKIYA Administration Budesonide/Formoterol Fumarate 2 puff 04/28/17 13:45 05/01/17 10:49 Symbicort 80/4.5mcg - IH 1 inh BID ZAKIYA Administration Carvedilol 12.5 mg 04/26/17 10:00 05/01/17 10:48 Coreg - PO 12.5 mg DAILY ZAKIYA Administration Clopidogrel Bisulfate 75 mg 04/26/17 10:00 05/01/17 10:47 Plavix - PO 75 mg DAILY ZAKIYA Administration Ezetimibe 10 mg 04/26/17 10:00 05/01/17 10:47 Zetia - PO 10 mg DAILY ZAKIYA Administration Furosemide 60 mg 04/30/17 10:00 04/30/17 10:53 Lasix Injection - IVPUSH 60 mg DAILY ZAKIYA Administration Gabapentin 600 mg 04/25/17 22:00 05/01/17 05:41 Neurontin - PO 600 mg TID ZAKIYA Administration Heparin Sodium (Porcine) 5,000 unit 04/28/17 08:02 05/01/17 05:41 Heparin - SQ 5,000 unit TID ZAKIYA Administration Hydralazine HCl 10 mg 04/28/17 22:00 05/01/17 10:47 Apresoline - PO 10 mg BID ZAKIYA Administration Insulin Aspart 1 vial 04/26/17 11:00 05/01/17 07:14 Novolog Vial Sliding Scale - SQ Not Given ACHS [facility] Protocol Lactic Acid 1 applic 04/27/17 12:01 Lac-Hydrin 12 TP BID PRN DRY SKIN Lisinopril 20 mg 04/26/17 10:00 05/01/17 10:48 Prinivil PO 20 mg DAILY ZAKIYA Administration Laboratory Tests 04/28/17 08:00 CASTRO Screen Pending c-ANCA Pending Proteinase 3 (PR3) Pending p-ANCA Pending Atypical p-ANCA Pending Myeloperoxidase Ab Pending Impression 1. CKD 2. CHF 3. obesity 4. hx CVA 5. CAD 6. HTN 7. DM 8. MARLINE 9. PAD 10. COPD Plan - renal function is stable but above baseline - switch lasix to 40 mg po daily - will see pt in office - anca is pending - discussed diet at length today - cont with lisinopril - discussed with medical team - will follow Dr Calvin
--- NOTE | 2017-05-01 12:44 | DS ---
Physical Exam: SUBJECTIVE: contacted by nursing associate, Moise Rodriguez, RN, patient removed his own IV and left the unit. OBJECTIVE:This is a 66 y/o man who presents to the ED with increased SOB and fatigue x 2 weeks. Patient reports ANTONY while taking a few steps at home. Patient reports smoking cessation last month. Patient reports increased tightness and swelling to both legs. Patient denies fever, chills, cough, dizziness, CP, palpitations, AP, N/V/D, constipation, dysuria. Vital Signs Period Temp Pulse Resp BP Sys/Ni Pulse Ox Last 24 Hr 97.3 F-98.4 F 65-68 19-20 125-172/56-87 93-96 PHYSICAL EXAM patient left the hospital prior to physical exam LABS Laboratory Results - last 24 hr 04/30/17 04/30/17 04/30/17 14:46 18:41 21:28 WBC RBC Hgb Hct MCV MCH MCHC RDW Plt Count MPV Neutrophils % Lymphocytes % Monocytes % Eosinophils % Basophils % Sodium Potassium Chloride Carbon Dioxide Anion Gap BUN Creatinine POC Glucometer 237 241 176 Random Glucose Calcium 05/01/17 05/01/17 05/01/17 06:49 07:15 07:15 WBC 8.8 RBC 5.13 Hgb 15.8 Hct 45.9 MCV 89.6 MCH 30.8 MCHC 34.4 RDW 15.5 Plt Count 141 MPV 9.2 Neutrophils % 83.6 H Lymphocytes % 10.2 Monocytes % 5.8 Eosinophils % 0.1 Basophils % 0.3 Sodium 135 L Potassium 4.0 Chloride 98 Carbon Dioxide 29 H Anion Gap 8 BUN 49 H Creatinine 1.8 H POC Glucometer 150 Random Glucose 148 H Calcium 9.1 HOSPITAL COURSE: acute on chronic systolic CHF exacerbation - patient was diursed with lasix 60mg ivp, 4kg weight loss noted - cardiology, Dr Gill, consulted and following HTN - cont home lisinopril, coreg, norvasc. 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 Date of Admission:04/26/17 Date of Discharge: 05/01/17 Minutes to complete discharge: 45 Discharge Summary Reason For Visit: CHF Current Active Problems Acute bronchitis (Acute) CAD (coronary artery disease) (Acute) CHF exacerbation (Acute) CKD (chronic kidney disease) (Acute) COPD exacerbation (Acute) CVA (cerebral vascular accident) (Acute) DVT prophylaxis (Acute) Diabetes mellitus (Acute) HLD (hyperlipidemia) (Acute) HTN (hypertension) (Acute) MARLINE (obstructive sleep apnea) (Acute) PAD (peripheral artery disease) (Acute) Condition: Fair - Instructions Diet, Activity, Other Instructions: you were admitted to the hosptial for copd and chf exacerbation your lasix was increased to 40mg daily continue prednisione as prescribed continue symbicort daily please follow up with your retail sales director within 1 week please follow up with Dr Crawford, attorney within 1 week if any new or persistent symptoms develop please return to the emergency department Referrals: Ralf Connor MD [Staff Physician] - Wilma Calvin MD [Staff Physician] - 1 Week Disposition: ELOPED - Home Medications Comprehensive Discharge Medication List: Ambulatory Orders Albuterol Sulfate Inhaler - [Ventolin HFA Inhaler -] 1 - 2 puff PO PRN 04/25/17 Amlodipine Besylate 5 mg PO DAILY 04/25/17 Aspirin [Adult Aspirin Regimen] 81 mg PO DAILY 04/25/17 Atorvastatin Ca [Lipitor] 40 mg PO HS 04/25/17 Carvedilol 12.5 mg PO DAILY 04/25/17 Clopidogrel Bisulfate [Plavix] 75 mg PO DAILY 04/25/17 Ergocalciferol (Vitamin D2) [Vitamin D2] 50,000 unit PO DAILY 04/25/17 Ezetimibe [Zetia] 10 mg PO DAILY 04/25/17 Gabapentin 600 mg PO TID 04/25/17 Linagliptin [Tradjenta] 5 mg PO DAILY 04/25/17 Lisinopril 20 mg PO DAILY 04/25/17 Albuterol 0.083% Nebulizer Daisy [Ventolin 0.083% Nebulizer Soln -] 1 amp NEB Q4H PRN #120 amp 05/01/17 Ammonium Lactate Lotion [Lac-Hydrin 12] 1 applic TP BID PRN #1 bottle 05/01/17 Budesonide/Formeterol Fumarate [SYMBICORT 80/4.5mcg -] 2 puff IH BID #1 inhaler 05/01/17 Furosemide [Lasix -] 40 mg PO DAILY #30 tablet 05/01/17 Nebulizer and Compressor [Comp-Air Nebulizer System] 1 each MC DAILY #1 each hydrALAZINE HCL [Apresoline -] 10 mg PO BID #60 tablet 05/01/17 predniSONE [Deltasone -] 5 mg PO ASDIR #32 tab 05/01/17 This patient is new to me today: No Emergency Visit: Yes ED Registration Date: 04/26/17 Care time: The patient presented to the Emergency Department on the above date and was hospitalized for further evaluation of their emergent condition. Critical Care patient: No - Discharge Referral Referred to [facility] Med P.C.: No
[2017-05-02 00:09] LABS: ATYPICAL pANCA <1:20 titer (Neg:<1:20); C-ANCA <1:20 titer (Neg:<1:20); P-ANCA <1:20 titer (Neg:<1:20); PROTEINASE-3 ANTIBODY <3.5 U/mL (0.0-3.5)
== END 2017-05-01 12:10 | disposition left against medical advice (07) | DRG 291 ==
LOC: FER 15:37 → EDBD 15:37 → FM/S 21:18 → OBSVTOIN 04-26 08:55
PROVIDERS: ADMIT Internal Medicine; ATTEND Nurse Practitioner Family
DX: I13.0 Hypertensive heart and chronic kidney disease with heart failure and stage 1 through stage 4 chronic kidney disease, or unspecified chronic kidney disease (principal); I50.33 Acute on chronic diastolic (congestive) heart failure; J44.1 Chronic obstructive pulmonary disease with (acute) exacerbation; Z68.42 Body mass index [BMI] 45.0-49.9, adult; G47.33 Obstructive sleep apnea (adult) (pediatric); I87.2 Venous insufficiency (chronic) (peripheral); E11.22 Type 2 diabetes mellitus with diabetic chronic kidney disease; N18.9 Chronic kidney disease, unspecified; Z86.73 Personal history of transient ischemic attack (TIA), and cerebral infarction without residual deficits; I73.9 Peripheral vascular disease, unspecified; E78.5 Hyperlipidemia, unspecified; Z87.891 Personal history of nicotine dependence; I25.10 Atherosclerotic heart disease of native coronary artery without angina pectoris; I42.9 Cardiomyopathy, unspecified
CPT/HCPCS: 36415; 71046-TC-FY; 71250-TC; 76775-TC; 76856-TC; 80048; 80053; 81003; 81015; 82550; 82570; 82962; 83036; 83520; 83735; 83880; 84100; 84156; 84300; 84484; 84540; 85025; 85610; 86038; 86256; 93005; 93306-TC; 93970-TC; 94010; 94640; 97116-GP; 99284-25; G0378; J1644